=== PATIENT | male | born 1935 | race Caucasian/White ===

== ENCOUNTER → 2016-08-25 | Day surgery (SDC) | payer MEDICARE ==
--- NOTE | 2016-08-18 14:38 | HP ---
CC: Dr. Shukri Dunham DATE OF ADMISSION: 08/25/2016. AGE: 80-year-old male. ADMITTING DIAGNOSES: 1. Gross hematuria. 2. Bladder tumor. PLANNED PROCEDURE: Transurethral resection of bladder tumor, possible right stent insertion. SURGEON: Dr. Conklin. HISTORY OF PRESENT ILLNESS: Jon Levin is an 80-year-old gentleman who was evaluated for gross hem aturia. 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 The tumor is fairly close to the expected course of the intramural portion of the right ureter and he is now being brought in fo r transurethral resection of the bladder tumor, possible right stent insertion. He was kindly evalu ated preoperatively by Dr. Shukri Dunham. PAST MEDICAL HISTORY: Significant for: 1. Hypertension. 2. Diabetes. 3. High cholesterol. PAST SURGICAL HISTORY: Significant for: 1. Bilateral inguinal hernia repair. 2. Left hand partial amputation at age 5. 3. Left total knee replacement approximately 15 years ago. MEDICATIONS ON ADMISSION: 1. Metformin 1000 mg b.i.d. 2. Aspirin 81 mg a day. 3. Lisinopril 20 mg a day. 4. Insulin as directed. 5. Simvastatin 20 mg daily. ALLERGIES: No known drug allergies. SMOKING HISTORY: He is a former smoker who quit about 15 to 20 years ago and had about a 30 pack ye ar smoking history prior to that. PHYSICAL EXAMINATION GENERAL: Pleasant, elderly gentleman. VITAL SIGNS: Blood pressure 162/78, pulse 52 per minute, oxygen saturation 99 percent on room air. CARDIOVASCULAR: Regular rate and rhythm, S1, S2. LUNGS: Clear bilaterally. ABDOMEN: Soft without masses. IMPRESSION: Xswlsq-[id number]-[id number]-old former smoker with a history of gross hematuria and bladder tumor as described above. PLAN: Planned procedure is transurethral resection of bladder tumor, possible right stent insertion . [id number]/[facility] #: [id number]
[~2016-08-25] MED LIST: Buffered Lidocaine 1% SYR 3ML* 3 ML/SYR SYRINGE INTRADERM ONE; Buffered Lidocaine 1% SYR 3ML* 3 ML/SYR SYRINGE ONE; Iohexol 180 (CONTRAST) 10 ML SDV IV ONE; Lidocaine 2% JELLY* 6 ML JELLY TOPICAL ONE; Lidocaine 2% MPF* 2 ML VIAL ONE; Ondansetron INJ* 2 MG/ML VIAL IV PRN; Propofol* 10 MG/ML 20 ML BTL IV PUSH ONE; Sodium Citrate/Citric Acid* 15 ML UDC ONE; Sodium Citrate/Citric Acid* 15 ML UDC PO ONE; cefTRIAXone(*) 2 GM ADDV.VIAL IVPB ONE; fentaNYL* 50 MCG/ML 2 ML VIAL (100 MCG VIAL) ONE; oxyCODONE/Acetamin 5/325 MG* TAB ONE
[2016-08-25] MEDS: fentaNYL* 50 MCG/ML 2 ML VIAL (100 MCG VIAL) IV PRN ×2 (09:09→09:18)
--- NOTE | 2016-08-25 09:21 | RAD ---
INDICATION: TURP; RIGHT ureteral stent placement. COMPARISON: No relevant prior exams available on the [facility] [place] [facility] PACS. TECHNIQUE: 11 seconds fluoroscopy. FINDINGS: RIGHT retrograde pyelogram is negative for pelvicaliectasis. RIGHT ureteral stent placed. IMPRESSION: Procedural fluoroscopy. CPT II Codes: 6045F
[2016-08-25 13:03] VITALS: BP 160/69
--- NOTE | 2016-08-25 19:27 | CONS ---
HOSPITAL MEDICINE CONSULTATION REPORT: DATE OF CONSULT: 08/25/16 ATTENDING PHYSICIAN: Dr. Conklin. CONSULTING PHYSICIAN: Dr. Abraham Robbins* (dictation provided by Geno Rehman NP). PRIMARY CARE PHYSICIAN: Dr. Dunham. REASON FOR CONSULTATION: Short-lived junctional rhythm in the perioperative period after TURP. HISTORY OF PRESENT ILLNESS: Mr. Levin is an 80-year-old male with a past medical history of hypertension, diabetes, hyperlipidemia, and recent diagnosis of bladder tumor for which he presented to hospital today for a transurethral resection of the prostate. He reportedly had no issues during the surgery except for the fact that it was noted on telemetry monitoring that he had a rhythm change. EKG shows that the patient had short-lived junctional rhythm, has been on EKG from 10:21 this a.m., within 30 minutes the patient has repeat EKG showing that he converted back to his baseline sinus bradycardia. The patient states he does not have any symptoms of chest pain, palpitations, lightheadedness. He has been up to ambulate to the bathroom and has had no dizziness. He states prior to coming into the hospital, he was feeling in his normal state of isa[place]. He was evaluated preoperatively by Dr. Dunham and felt to be appropriate for surgery. He has had no history of arrhythmias. His baseline EKG shows sinus bradycardia. Mr. Levin's short-lived episode of arrhythmia with junctional rhythm, Hospital Medicine was called regarding consultation. PAST MEDICAL HISTORY: 1. History of bladder tumor, now status post TURP. 2. Hypertension. 3. Diabetes. 4. Hyperlipidemia. 5. History of distant tobacco abuse. PAST SURGICAL HISTORY: 1. Bilateral inguinal hernia repair. 2. Left hand partial amputation at age 5. 3. Left total knee replacement approximately 15 years ago. OUTPATIENT MEDICATIONS: 1. Metformin 1000 mg p.o. b.i.d. 2. Aspirin 81 mg p.o. daily. 3. Lisinopril 20 mg p.o. daily. 4. Insulin as directed. 5. Simvastatin 20 mg p.o. daily. ALLERGIES: No known drug allergies. FAMILY HISTORY: Reviewed and noncontributory. SOCIAL HISTORY: The patient states he quit smoking about 15 to 20 years ago. There is no report of alcohol or drug use. He lives with his . His healthcare proxy would be his daughter. REVIEW OF SYSTEMS: A 14-point review of systems was completed with Mr. Levin in PACU and other than needing to go to the bathroom to have a bowel movement, he has no acute complaint and all others were negative. PHYSICAL EXAMINATION: GENERAL: Mr. Levin is lying in the bed. He is in no acute distress. He is calm and cooperative to my examination. VITAL SIGNS: Temperature 97.3, pulse rate 51, respiratory rate 18, O2 saturation 98% on room air, blood pressure 160/69. LUNGS: Clear to auscultation bilaterally with no accessory muscle use and good aeration. HEART: S1 and S2. No murmur, rub, or gallop and regular. ABDOMEN: Soft, nontender with bowel sounds positive x4. EXTREMITIES: No cyanosis or edema. SKIN: Intact. The patient has a Saldana catheter in place. NEUROLOGIC: He is alert. He is oriented x3. He moves all extremities equally. There is no facial asymmetry or facial weakness. Extraocular movements are intact. LABORATORY DATA/DIAGNOSTIC STUDIES: No preoperative labs were available. ASSESSMENT: Mr. Levin is an 80-year-old male with past medical history of hypertension, diabetes, hyperlipidemia, who presents to the hospital today for transurethral resection of prostate for bladder tumor with Dr. Conklin. During the perioperative period, he was found to have a short-lived junctional rhythm and has now converted back to his baseline sinus bradycardia. Hospital Medicine has been consulted regarding a question of whether or not the patient is appropriate for discharge from the PACU today. PLAN: I reviewed the EKGs and do concur that it is a junctional rhythm. I did speak with Dr. Randolph quickly over the phone, who had provided the official EKG interpretation that is available in the electronic medical record. She agrees that the patient likely has underlying sinus bradycardia, which was worsened by the anesthesia and likely went into a junctional rhythm because of that. The patient is asymptomatic and again is back to his normal sinus rhythm. The only recommendation from us and from Dr. Randolph would be for a possible outpatient cardiac monitoring to determine if the patient is having ongoing issues with junctional rhythm if he were to have any symptoms of lightheadedness, dizziness, or other concerning symptom. I have spoken to Mr. Levin and his daughter about this and they are planning to follow up with Dr. Dunham next week. Mr. Levin is medically stable for discharge in PACU today. TIME SPENT: Approximately 35 minutes was spent in the consultation of this patient; more than half time spent with him and his daughter at the bedside reviewing the events leading up to this hospitalization, performing the physical examination, and reviewing the plan of care. GENO REHMAN NP CC: Dr. Dunham* [id number]/[facility] #: [id number] ANIA
--- NOTE | 2016-08-25 21:24 | OP ---
DATE OF OPERATION: 08/25/16 - [facility] DATE OF : [birth year] - AGE: 80 years, male. SURGEON: Tavares Conklin MD ANESTHESIOLOGIST: Dr. Gonzalez. ANESTHESIA: General. PRE-OP DIAGNOSES: 1. Hematuria. 2. 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 POST-OP DIAGNOSES: 1. Hematuria. 2. 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 OPERATIVE PROCEDURE: 1. Transurethral resection of bladder tumors (greater than 5 cm). 2. Right retrograde pyelogram and right stent insertion. COMPLICATIONS: None. BLOOD LOSS: Minimal. OPERATIVE FINDINGS: 1. Moderately enlarged prostate. 2. Aggregate of multiple superficial appearing bladder tumors, posterior bladder wall at the edge of a diverticulum (no evidence of invasive appearing tumor visually). STENT USED: A 7-Indonesian stent, right ureter. INDICATIONS: Jon Levin is an 80-year-old gentleman who was evaluated and noted to have a bladder tumor. Because of the proximity of this to the intramural portion of the right ureter, he may require temporary right stent insertion. DESCRIPTION OF PROCEDURE: After induction of general anesthesia, the patient was placed in dorsal lithotomy position. Sequential compression devices were in place and functioning. Initial cystoscopy revealed mild strictures in the bulbar urethra. The prostate is moderately enlarged. The bladder was examined. The right and left ureteral orifices are normal in position and configuration. 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 Using a guidewire, the right orifice was intubated and right retrograde pyelogram was performed. There was no evidence of any filling defects noted and a 7-Indonesian stent was introduced and positioned under fluoroscopy with good proximal and distal positioning obtained. Next, attention was directed to the bladder tumors. [employer] biopsies were obtained and sent for histopathology. Next, a resectoscope was introduced and all of the tumor was resected down to muscle. At the end of the procedure, there was no remaining visible tumor and hemostasis appeared satisfactory. There was no evidence of bladder perforation. A Saldana catheter was placed and connected to a drainage bag. The patient tolerated the procedure satisfactorily and was transferred back to the recovery area in stable condition. CC: Shukri Dunham MD* [id number]/[facility] #: [id number] ANIA
== END | disposition home or self-care (01) ==
LOC: OR 06:23
PROVIDERS: ATTEND Urology
DX: C67.8 Malignant neoplasm of overlapping sites of bladder (principal); I97.89 Other postprocedural complications and disorders of the circulatory system, not elsewhere classified; I49.9 Cardiac arrhythmia, unspecified; Y83.8 Other surgical procedures as the cause of abnormal reaction of the patient, or of later complication, without mention of misadventure at the time of the procedure; E11.8 Type 2 diabetes mellitus with unspecified complications; Z79.4 Long term (current) use of insulin; I10 Essential (primary) hypertension; Z87.891 Personal history of nicotine dependence
CPT/HCPCS: 74420; 88305; 93005; A9270-GY; C1876; J0696; J2704; J3010

== ENCOUNTER 2017-01-30 09:46 | Inpatient (IN) | payer MEDICARE ==
[2017-01-30 12:29] LABS: Hematocrit 42 % (42-52); Hemoglobin 13.7 g/dl (14.0-18.0); Mean Corpuscular HGB Conc 33 g/dl (31-36); Mean Corpuscular Hemoglobin 31 pg (27-31); Mean Corpuscular Volume 94 fL (80-94); Mean Platelet Volume 9 um3 (7.4-10.4); Red Blood Count 4.46 10^6/ul (4.0-5.4); Red Cell Distribution Width 14 % (10.5-15); White Blood Count 6.2 10^3/ul (3.5-10.8)
--- NOTE | 2017-01-30 12:39 | RAD ---
INDICATION: Right arm numbness COMPARISON: None. TECHNIQUE: Contiguous axial sections of the brain were obtained from the skull base to the vertex without contrast. FINDINGS: At the superior portion of the left frontal parietal lobe there is hyperdense material adjacent to the cortex (axial image 25). On the sagittal plane image (image 23 of 34) there is hyperdense material is potentially located at the central sulcus on the left. There is no definite subdural hematoma or other foci of extra-axial hemorrhage. The ventricles, cisterns and sulci exhibit symmetrical and mild involutional changes. The haile-white matter differentiation is adequately maintained and there is no sulcal effacement. No significant focal abnormality or mass effect is present. No significant focal osseous abnormality is present. The visualized portion of the paranasal sinuses are clear. There is essentially complete fusion of the left mastoid air cells. IMPRESSION: 1. CT findings are consistent with subarachnoid hemorrhage at the left central sulcus without CT apparent acute abnormality of the underlying haile matter. 2. Left mastoid air cell effusion of unknown chronicity. 3. Additional age-appropriate chronic findings described in the body the report. The presence of subarachnoid hemorrhage was reported to Dr. Murphy over the telephone at approximately 1225 hours on January 30, 2017.
[2017-01-30 12:48] LABS: Albumin 4.2 g/dL (3.2-5.2); BUN/Creatinine Ratio 19.5 (8-20); Calcium 9.4 mg/dL (8.6-10.3); EGFR African American 115.7 (>60); EGFR Non-African American 89.9 (>60); Globulin 2.6 g/dL (2-4); Potassium 4.1 mmol/L (3.5-5.0); Total Bilirubin 0.5 mg/dL (0.2-1.0); Total Protein 6.8 g/dL (6.4-8.9)
[2017-01-30] MEDS ORDERED: Iodixanol* (CONTRAST) 320 MG/ML 100 ML SDV IV ONE (13:22)
--- NOTE | 2017-01-30 14:23 | RAD ---
INDICATION: Right upper extremity numbness COMPARISON: Same day CT of the brain that shows evidence of subarachnoid hemorrhage at the left central sulcus. TECHNIQUE: A CT angiogram of the head was performed with 80 cc of Visipaque 320. Contiguous axial sections were obtained from the C2 level through the [place]. Images were reconstructed in the sagittal, coronal planes and in a 3-D volume rendered format. CTA of the brain: Immediately external to the cortex at the central sulcus there is hyperdense material (axial image 55 and sagittal image 37). The internal carotid, anterior and middle cerebral arteries appear are patent without high grade stenosis or occlusion. There is coarse atherosclerotic of the bilateral petrous carotid arteries. The vertebral, basilar and posterior cerebral arteries appear patent without high grade stenosis or occlusion. There is coarse atherosclerotic calcification at the bilateral, right greater than left, vertebral arteries low the confluence into the basilar artery. Bilaterally the posterior communicating arteries appear to be absent. No focal luminal filling defect, aneurysm or vascular malformation is seen. IMPRESSION: 1. Similar to the previous CT examination, findings are consistent with subarachnoid hemorrhage at the left central sulcus. 2. 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
[2017-01-30 15:08] LABS: Urine Bacteria Absent (Absent); Urine Bilirubin Negative (Negative); Urine Glucose Negative (Negative); Urine Nitrite Negative (Negative)
[2017-01-30] MEDS ORDERED: hydrALAZINE IV* 20 MG/ML VIAL IV SLOW PU PRN (15:53)
[2017-01-30] MEDS ORDERED: Dextrose 50% Syringe 50 ML* 25 GM/50 ML SYRINGE IV PUSH PRN (15:54)
[2017-01-30] MEDS ORDERED: Labetalol IV* 5 MG/ML 20 ML VIAL IV PUSH PRN (15:57)
[2017-01-30] MEDS ORDERED: Ondansetron INJ* 2 MG/ML VIAL IV PRN (16:29)
[2017-01-30] MEDS ORDERED: Acetaminophen TAB* 325 MG PO PRN (16:29)
[2017-01-30] MEDS: Insulin LISPRO* 1 UNITS UNIT SUBCUT SCH (17:14)
[2017-01-30] MEDS: Atorvastatin* 20 MG TAB PO SCH (17:53)
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
--- NOTE | 2017-01-30 22:41 | HP ---
HISTORY AND PHYSICAL:* ADDENDUM: Mr. Levin is an 81-year-old male with a history of hypertension and diabetes, who developed one-sided numbness today, although was transient and resolved. Subsequent CT of the brain showed subarachnoid hemorrhage. The patient had some atypical symptoms for subarachnoid hemorrhage and he has not been hypertensive in the emergency department. We will ask Dr. Majano to see the patient for evaluation and help with diagnostics. For further details of the patient's presentation and plan, please see history and physical dictated by Svetlana Montanez NP, on 01/30/17, with which I agree. [id number]/[facility] #: [id number] MTDD
[2017-01-31 06:02] LABS: Hematocrit 40 % (42-52); Hemoglobin 13.2 g/dl (14.0-18.0); Mean Corpuscular HGB Conc 33 g/dl (31-36); Mean Corpuscular Hemoglobin 31 pg (27-31); Mean Corpuscular Volume 94 fL (80-94); Mean Platelet Volume 10 um3 (7.4-10.4); Red Blood Count 4.28 10^6/ul (4.0-5.4); Red Cell Distribution Width 14 % (10.5-15); White Blood Count 5.8 10^3/ul (3.5-10.8)
[2017-01-31 06:32] LABS: BUN/Creatinine Ratio 17.3 (8-20); Calcium 8.9 mg/dL (8.6-10.3); EGFR African American 128.2 (>60); EGFR Non-African American 99.7 (>60); HDL Cholesterol 56.7 mg/dL; Potassium 3.9 mmol/L (3.5-5.0)
[2017-01-31] MEDS: Insulin LISPRO* 1 UNITS UNIT SUBCUT SCH ×3 (07:35→17:58)
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
[2017-01-31] MEDS: Lisinopril TAB* 10 MG PO SCH (07:53)
--- NOTE | 2017-01-31 08:14 | RAD ---
Indication: Follow-up subarachnoid hemorrhage. Right-sided numbness. CT of the brain was performed without IV contrast. Ventricular structures are midline. No midline shift is noted. Again noted is left convexity subarachnoid hemorrhage which is unchanged since previous exam of January 30, 2017. Mastoid air cells are opacified on the left consistent with left-sided mastoid sinusitis. There are multiple areas of low density in the periventricular white matter which is unchanged from previous exam and may represent chronic ischemic White matter change. Posterior fossa is otherwise unremarkable. IMPRESSION: Left convexity subarachnoid hemorrhage is unchanged from previous exam. Chronic ischemic White matter change is noted. Left-sided mastoid sinusitis is noted unchanged.
--- NOTE | 2017-01-31 11:09 | ED ---
I, Nicolas,Alea, scribed for Giuseppe Murphy MD on 01/30/17 at 1007 . Neurological HPI - HPI Summary HPI Summary: This 81 y/o male presents to ED for acute onset of RUE numbness that lasted 15 minutes immediately after breakfast this morning. Numbness was located upto RUE shoulder and is currently resolved. Negative weakness, neck problem, or limited ROM. Pt denies any prior similar episode of numbness. Negative PMHx of CVA or TIA. PMHx includes traumatic LUE injury with digit #1 and #2 missing, and DM. - History of Current Complaint Chief Complaint: EDNeurologicalDeficit Stated Complaint: RT ARM NUMBNESS Hx Obtained From: Patient, Medical Records Onset/Duration: Started hours ago Timing: Intermittent Episodes Lasting: - 15 minutes Pain Intensity: 0 Pain Scale Used: 0-10 Numeric Character: Numbness/Tingling - RUE hand - Allergy/Home Medications Allergies/Adverse Reactions: Allergies Allergy/AdvReac Type Severity Reaction Status Date / Time No Known Allergies Allergy Verified 08/25/16 07:02 PMH/Surg Hx/FS Hx/Imm Hx Endocrine/Hematology History: Reports: Hx Diabetes - TYPE 2 Cardiovascular History: Reports: Hx Hypertension - ON MEDICATION FOR Denies: Other Cardiovascular Problems/Disorders Respiratory History: Denies: Other Respiratory Problems/Disorders GI History: Denies: Other GI Disorders Musculoskeletal History: Denies: Other Musculoskeletal History Sensory History: Reports: Hx Cataracts - AROLDO, Hx Contacts or Glasses - READING Denies: Hx Hearing Aid Opthamlomology History: Reports: Hx Cataracts - AROLDO, Hx Contacts or Glasses - READING Neurological History: Denies: Other Neuro Impairments/Disorders - Surgical History Surgery Procedure, Year, and Place: [facility]OLDO CATARACTS, 2015, [facility] X2, 2005, [facility] – [place]. 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 Negative malignant hypethermia - Social History Alcohol Use: Rare Alcohol Amount: HOLIDAYS Substance Use Type: Reports: None Smoking Status (MU): Former Smoker Type: Cigarettes Amount Used/How Often: PACK A DAY Have You Smoked in the Last Year: No Review of Systems Negative: Fever Positive: Numbness - RUE numbness. Negative: Weakness All Other Systems Reviewed And Are Negative: Yes Physical Exam - Summary Physical Exam Summary: VITAL SIGNS: Reviewed. GENERAL: Patient is a well-developed and nourished MALE who is lying comfortable in the stretcher. Patient is not in any acute respiratory distress. HEAD AND FACE: No signs of trauma. No ecchymosis, hematomas or skull depressions. No sinus tenderness. EYES: PERRLA, EOMI x 2, No injected conjunctiva, no nystagmus. No photophobia. EARS: Hearing grossly intact. Ear canals and tympanic membranes are within normal limits. MOUTH: Oropharynx within normal limits. NECK: Supple, trachea is midline, no adenopathy, no JVD, no carotid bruit, no c- spine tenderness, neck with full ROM. No meningeal signs, no Kernig's or brudzinskis signs. CHEST: Symmetric, no tenderness at palpation LUNGS: Clear to auscultation bilaterally. No wheezing or crackles. CVS: Regular rate and rhythm, S1 and S2 present, no murmurs or gallops appreciated. ABDOMEN: Soft, non-tender. No signs of distention. No rebound no guarding, and no masses palpated. Bowel sounds are normal. EXTREMITIES: FROM in all major joints, no edema, no cyanosis or clubbing. LUE hand missing digit #1 and #2. NEURO: Alert and oriented x 3. No acute neurological deficits. Speech is normal and follows commands. SKIN: Dry and warm Triage Information Reviewed: Yes Vital Signs On Initial Exam: Initial Vitals Temp Pulse Resp BP Pulse Ox 98.6 F 84 16 153/62 99 01/30/17 09:53 01/30/17 09:53 01/30/17 09:53 01/30/17 09:53 01/30/17 09:53 Vital Signs Reviewed: Yes Diagnostics - Vital Signs Vital Signs Temp Pulse Resp BP Pulse Ox 01/30/17 09:53 98.6 F 84 16 153/62 99 - Laboratory Lab Results: Lab Results 01/30/17 01/30/17 01/30/17 Range/Units 12:20 12:20 12:20 WBC 6.2 (3.5-10.8) 10^3/ul RBC 4.46 (4.0-5.4) 10^6/ul Hgb 13.7 L (14.0-18.0) g/dl Hct 42 (42-52) % MCV 94 (80-94) fL MCH 31 (27-31) pg MCHC 33 (31-36) g/dl RDW 14 (10.5-15) % Plt Count 134 L (150-450) 10^3/ul MPV 9 (7.4-10.4) um3 Neut % (Auto) 65.9 (38-83) % Lymph % (Auto) 24.9 L (25-47) % Beauregard % (Auto) 6.7 (1-9) % Eos % (Auto) 1.9 (0-6) % Baso % (Auto) 0.6 (0-2) % Absolute Neuts (auto) 4.1 (1.5-7.7) 10^3/ul Absolute Lymphs (auto) 1.5 (1.0-4.8) 10^3/ul Absolute Monos (auto) 0.4 (0-0.8) 10^3/ul Absolute Eos (auto) 0.1 (0-0.6) 10^3/ul Absolute Basos (auto) 0 (0-0.2) 10^3/ul Absolute Nucleated RBC 0 10^3/ul Nucleated RBC % 0.1 INR (Anticoag Therapy) 0.82 L (0.89-1.11) Sodium 138 (133-145) mmol/L Potassium 4.1 (3.5-5.0) mmol/L Chloride 105 (101-111) mmol/L Carbon Dioxide 28 (22-32) mmol/L Anion Gap 5 (2-11) mmol/L BUN 16 (6-24) mg/dL Creatinine 0.82 (0.67-1.17) mg/dL Est GFR ( Amer) 115.7 (>60) Est GFR (Non-Af Amer) 89.9 (>60) BUN/Creatinine Ratio 19.5 (8-20) Glucose 122 H (70-100) mg/dL Hemoglobin A1c (Less than 6.0) % Lactic Acid (0.5-2.0) mmol/L Calcium 9.4 (8.6-10.3) mg/dL Total Bilirubin 0.50 (0.2-1.0) mg/dL AST 16 (13-39) U/L ALT 10 (7-52) U/L Alkaline Phosphatase 56 (34-104) U/L Troponin I 0.00 (<0.04) ng/mL Total Protein 6.8 (6.4-8.9) g/dL Albumin 4.2 (3.2-5.2) g/dL Globulin 2.6 (2-4) g/dL Albumin/Globulin Ratio 1.6 (1-3) Urine Color Urine Appearance Urine pH (5-9) Ur Specific [place] (1.010-1.030) Urine Protein (Negative) Urine Ketones (Negative) Urine Blood (Negative) Urine Nitrate (Negative) Urine Bilirubin (Negative) Urine Urobilinogen (Negative) Ur Leukocyte Esterase (Negative) Urine WBC (Auto) (Absent) Urine RBC (Auto) (Absent) Urine Bacteria (Absent) Urine Glucose (Negative) 01/30/17 01/30/17 01/30/17 Range/Units 12:20 12:20 14:48 WBC (3.5-10.8) 10^3/ul RBC (4.0-5.4) 10^6/ul Hgb (14.0-18.0) g/dl Hct (42-52) % MCV (80-94) fL MCH (27-31) pg MCHC (31-36) g/dl RDW (10.5-15) % Plt Count (150-450) 10^3/ul MPV (7.4-10.4) um3 Neut % (Auto) (38-83) % Lymph % (Auto) (25-47) % Beauregard % (Auto) (1-9) % Eos % (Auto) (0-6) % Baso % (Auto) (0-2) % Absolute Neuts (auto) (1.5-7.7) 10^3/ul Absolute Lymphs (auto) (1.0-4.8) 10^3/ul Absolute Monos (auto) (0-0.8) 10^3/ul Absolute Eos (auto) (0-0.6) 10^3/ul Absolute Basos (auto) (0-0.2) 10^3/ul Absolute Nucleated RBC 10^3/ul Nucleated RBC % INR (Anticoag Therapy) (0.89-1.11) Sodium (133-145) mmol/L Potassium (3.5-5.0) mmol/L Chloride (101-111) mmol/L Carbon Dioxide (22-32) mmol/L Anion Gap (2-11) mmol/L BUN (6-24) mg/dL Creatinine (0.67-1.17) mg/dL Est GFR ( Amer) (>60) Est GFR (Non-Af Amer) (>60) BUN/Creatinine Ratio (8-20) Glucose (70-100) mg/dL Hemoglobin A1c 7.4 H (Less than 6.0) % Lactic Acid 1.5 (0.5-2.0) mmol/L Calcium (8.6-10.3) mg/dL Total Bilirubin (0.2-1.0) mg/dL AST (13-39) U/L ALT (7-52) U/L Alkaline Phosphatase (34-104) U/L Troponin I (<0.04) ng/mL Total Protein (6.4-8.9) g/dL Albumin (3.2-5.2) g/dL Globulin (2-4) g/dL Albumin/Globulin Ratio (1-3) Urine Color Yellow Urine Appearance Clear Urine pH 7.0 (5-9) Ur Specific [place] 1.026 (1.010-1.030) Urine Protein Negative (Negative) Urine Ketones Negative (Negative) Urine Blood Negative (Negative) Urine Nitrate Negative (Negative) Urine Bilirubin Negative (Negative) Urine Urobilinogen Negative (Negative) Ur Leukocyte Esterase Trace H (Negative) Urine WBC (Auto) Trace(0-5/hpf) (Absent) Urine RBC (Auto) Absent (Absent) Urine Bacteria Absent (Absent) Urine Glucose Negative (Negative) Result Diagrams: 01/31/17 05:30 01/31/17 05:30 Lab Statement: Any lab studies that have been ordered have been reviewed, and results considered in the medical decision making process. - CT Brain CT Interpretation: Positive (See Comments) - 1. CT findings are consistent with subarachnoid hemorrhage at the left central sulcus without CT apparent acute abnormality of the underlying haile matter. 2. Left mastoid air cell effusion of unknown chronicity. 3. Additional age-appropriate chronic findings described in the body the report. The presence of subarachnoid hemorrhage was reported to Dr. Murphy over the telephone at approximately 1225 hours on January 30, 2017. CT Interpretation Completed By: Radiologist CTA Head CT Interpretation: Positive (See Comments) - 1. Similar to the previous CT examination, findings are consistent with subarachnoid hemorrhage at the left central sulcus. 2. 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 CT Interpretation Completed By: Radiologist - EKG 1001 Cardiac Rate: NL - 64 bpm EKG Rhythm: Sinus Rhythm EKG Interpretation: RBBB, new change since 08/25/2016 NIH Scale - NIH Scale Level of Consciousness: Alert/Keenly Responsive Ask Patient the Month and His/Her Age: Both Correct Ask Pt to Open/Close Eyes and Automatic Machine Attendant/Release Non-Paretic Hand: Both Correctly Best Gaze (Only Horizontal Eye Movement): Normal Visual Field Testing: No Visual Loss Facial Paresis-Pt to Smile & Close Eyes or Grimace Symmetry: Normal/Symmetrical Motor Function - Right Arm: No Drift-Holds 10 Seconds Motor Function - Left Arm: No Drift-Holds 10 Seconds Motor Function - Right Leg: No Drift-Holds 10 Seconds Motor Function - Left Leg: No Drift-Holds 10 Seconds Limb Ataxia-Must be out of Proportion to Weakness Present: Absent Sensory (Use Pinprick to Test Arms/Legs/Trunk/Face): Normal Best Language (Describe Picture, Name Items): No Aphasia Dysarthria (Read Several Words): Normal Extinction and Inattention: No Abnormality Total Score: 0 Re-Evaluation - Re-Evaluation First Eval Re-Evaluation Time: 12:47 Comment: MD in room to update pt on CT Brain results and plan of care. Course/Dx - Course Assessment/Plan: This 81 y/o male presents to ED for acute onset of RUE numbness that lasted 15 minutes immediately after breakfast this morning. Numbness was located upto RUE shoulder and is currently resolved. Negative weakness, neck problem, or limited ROM. Pt denies any prior similar episode of numbness. Negative Hx of CVA or TIA. PMHx includes traumatic LUE injury with digit #1 and #2 missing, and DM. Bloodwork indicates mild anemia and elevated glucose of 122. CT Brain shows findings that are consistent with subarachnoid hemorrhage at the left central sulcus without CT apparent acute abnormality of the underlying haile matter. I discussed the case with Erica Brizuela from neurology and he recommends a CTA to r/o aneurysm. CTA Head findings are 1. consistent with subarachnoid hemorrhage at the left central sulcus. 2. 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 Dr. Maldonado consulted at 1308 PM and again and he recommends admission to the hospitalist. At 1439 PM. I discussed the case with Dr. Itzel hsieh hospitalist services and he accepted the patient for admission. - Differential Dx Differential Diagnoses Neuro: Positive: Coronary Artery Disease, Seizure Disorder, Transient Ischemic Attack - Diagnoses Provider Diagnoses: Hemorrhagic cerebrovascular accident (CVA) - Physician Notifications Discussed Care Of Patient With: Surya Maldonado - recommends CTA Head to r/o aneurysm Time Discussed With Above Provider: 13:08 Instructed by Provider To: Admit As Inpatient Discharge - Discharge Plan Condition: Stable Disposition: ADMITTED TO [facility] documentation as recorded by the Nicolas yusuf Soohyun accurately reflects the service I personally performed and the decisions made by , Giuseppe Murphy MD.
--- NOTE | 2017-01-31 16:22 | CONS ---
NEUROLOGY CONSULTATION: DATE OF CONSULT: 01/31/17 LOCATION: The patient is in the ICU. REQUESTING PROVIDER: Svetlana Montanez NP HISTORY OF PRESENT ILLNESS: Jon Levin is an 81-year-old man with a history of diabetes and hypertension, as well as hyperlipidemia, who presented to the ER yesterday morning after a transient episode of right upper extremity numbness and tingling. The history is obtained from review of the chart as well as discussion with the patient's daughter, Jenny, as the patient currently is unable to recall much of what caused him to present to the hospital. This is apparently a change from his admission status and even from earlier this morning. Yesterday, he and his daughter were having breakfast at the [employer], and as they were driving back home, he tells me that he had pain in his right shoulder which radiated down into his flank. The record, however, indicates that he reported arm and shoulder numbness at that time. His daughter also indicates that his arm was weak and he would continually drop it down to his side when he tried to raise it up. The record indicates that these symptoms lasted for about 15 minutes and he was asymptomatic by the time he arrived in the ER. He underwent CT scan of the brain which showed findings concerning for a small amount of subarachnoid hemorrhage in the central sulcus on the left. He denies any recent head trauma, but Svetlana Montanez's H and P indicates that he may have hit his head getting out of the car a few weeks ago, but was unable to recall which side of his head he was hit. He currently denies any headache, extremity numbness or weakness. He does acknowledge that he feels nervous currently and that he has trouble organizing his thoughts and getting his words out when he is nervous. He is clearly a little bit agitated by his inability to recall why he is here in the hospital and even what the name of the hospital is. There has been no witnessed seizures and no periods of alteration is in his awareness which has been witnessed. He has had no abnormal movements as far as I know of the right upper extremity. He underwent CT angiogram yesterday after Dr. Maldonado was contacted which demonstrated no aneurysm nor obvious blood vessel malformation such as an arterial venous malformation. Neurology consultation is requested for help with management and workup of the subarachnoid hemorrhage. PAST MEDICAL HISTORY: 1. Hypertension. 2. Type 2 diabetes. 3. Hyperlipidemia. 4. History of bladder tumor, status post TURP in August 2016. PAST SURGICAL HISTORY: 1. Bilateral inguinal hernias. 2. 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 3. Left total knee about 5 years ago. MEDICATIONS: Home medications have not yet been confirmed but include according to the records: 1. Simvastatin 40 mg. 2. Multivitamin. 3. Metformin 1000 mg twice daily. 4. Lisinopril 20 mg daily. 5. Insulin at meals. 6. Aspirin 81 mg. His hospital medications were reviewed and include: 1. Lisinopril. 2. Insulin. 3. Atorvastatin. 4. Tylenol p.r.n. for pain. 5. Insulin sliding scale. ALLERGIES: No known drug allergies. FAMILY HISTORY: His father had 2 abdominal aneurysms, the second of which resulted in his . His mother reportedly from an infection. He denies any family history of stroke or bleeding in the brain. SOCIAL HISTORY: He quit smoking many years ago. He lives alone and is independent in his ADLs, though indicates that his "lady friend" comes and cooks for him for the week. REVIEW OF SYSTEMS: As per the HPI, otherwise negative. PHYSICAL EXAMINATION: Temperature 99 degrees Fahrenheit, blood pressure most recently when I was in the room and talking with the patient was measured at 116 /103 but that is an outlier and the majority of his blood pressures have been in the 120s to 140s systolic over 50s to 60s diastolic. Heart rate is 68. Oxygen saturation is 100% on room air. On general examination, he was seated in the chair at his bedside and lunch had just arrived when I entered the room. He appeared anxious when I entered the room and had some difficulty understanding who I was and why I was there though I introduced myself. He called his nurse into the room to ask what he should do for this interview and asked if he was dressed appropriately. Furthermore, he was unable to explain what symptoms brought him into the hospital or to state the name of the hospital. At the end of our encounter, when his daughters came back into the room, he was able to give some history of the symptoms that resulted in his admission to the hospital. His heart shows occasional missed beats which seemed to correspond with PVCs on telemetry. There is a systolic ejection murmur heard. He has carotid bruits bilaterally. The lungs are clear to auscultation bilaterally. He has the first 2 fingers of his left hand amputated and the hand is contracted and the forearm on the left side is atrophied. On neurologic examination, he was able to produce the date but he did look at the board in his room, then he was unable to state the name of the hospital. He was able to accurately describe the cookie theft picture on the stroke cards but had some hesitation in his speech at times. He was able to name common objects on the stroke cards, but low frequency objects he was not able to name. He was able to read without difficulty and had no dysarthria. He was able to follow commands of the exam without difficulty. On cranial nerve testing, pupils were equal, round, and reactive from 2 to 1 mm bilaterally. Funduscopic exam was difficult due to small pupil size. His versions are full without nystagmus. Visual brito are full to confrontation with no extinction. Facial sensation is intact to light touch in the V1 through V3 distributions bilaterally. His face is symmetric with full strength. Hearing is intact to finger rub on the left, diminished on the right. The tongue protrudes in the midline and the palate elevates symmetrically. Shoulder shrug is full and symmetric. On motor examination, he has full strength in the upper and lower extremities with no pronator drift. He has some paratonia. Sensation is intact to light touch in the upper and lower extremities with no consistent extinction to double simultaneous stimulation. Reflexes are 2+ in the upper extremities and at the knees, absent at the ankles with downgoing toes. [id number]-[id number] is intact without ataxia. He had some sway with Romberg. DIAGNOSTIC STUDIES/LAB DATA: CBC shows a slightly low hematocrit of 40 and a platelet count of 128, down from 134 yesterday. Chemistry panel shows elevated glucoses and an A1c of 7.4%. Cholesterol study showed triglycerides of 97, total cholesterol 141, LDL 65 and HDL of 56.7. Urinalysis was negative for infection and his INR was 0.82. Noncontrast brain CT obtained yesterday and repeated this morning were personally reviewed and show a small area of subarachnoid hemorrhage in the left frontoparietal convexity which appears to be settling in the central sulcus. I also questioned whether there is hypodensity in the white matter underlying this area of hemorrhage but this was not felt to be the case by the radiologist. CT angiogram was obtained and reviewed and again shows no evidence of aneurysm or arteriovenous malformation. This was a CTA of the head only and the neck was not obtained, but there is chronic atherosclerotic disease of the intracranial circulation in particular in the petrous section of the carotid arteries bilaterally, as well as in the right greater than left vertebral arteries. IMPRESSION: Jon Levin is an 81-year-old man admitted with a small apparent subarachnoid hemorrhage on the left, who experienced transient symptoms of right arm numbness and tingling. He has not reportedly had recurrence of those symptoms but his mental status has declined since his admission and perhaps is somewhat fluctuating. As a result, I would like to obtain an EEG at this time to evaluate for any subclinical seizure activity or periodic discharges. I have also asked for MRI scan of the brain to be done to evaluate for any underlying stroke or tumor, which may be associated with this subarachnoid hemorrhage. At this point, antiplatelet agents should be avoided. His blood pressure should be kept less than 150 systolic. Close monitoring of his neurologic status should continue and other recommendations will be pending the results of the above testing. [id number]/[facility] #: [id number] [facility] HOSPITALМарина
--- NOTE | 2017-01-31 16:53 | RAD ---
INDICATION: MRI screening COMPARISON: None TECHNIQUE: Decker and lateral views of the orbits were acquired FINDINGS: Orbits: There is no evidence of intraorbital metallic density foreign body. Other: None IMPRESSION: no metallic intraorbital foreign body
--- NOTE | 2017-01-31 17:40 | RAD ---
INDICATION: 81-year-old male with left hemispheric subarachnoid hemorrhage COMPARISON: CT brain January 31, 2017 TECHNIQUE: sagittal T1 FLAIR, axial diffusion and axial SWI images were acquired. The patient declined further imaging FINDINGS: The limited images submitted show no a tiny punctate focus of potential ischemia in the left cerebral hemisphere near the vertex. This measures 4 mm. No other apparent ischemic foci are appreciated. The SWI images confirm the presence of left hemispheric subarachnoid hemorrhage. No underlying lesion is identified on the submitted images. The ventricles are midline. There is diffuse cortical atrophic change. IMPRESSION: A LIMITED, PARTIAL EXAMINATION IS SUBMITTED. THERE IS A POTENTIAL TINY FOCUS OF ISCHEMIA IN THE LEFT CEREBRAL HEMISPHERE NEAR THE VERTEX. THERE IS LEFT-SIDED SUBARACHNOID HEMORRHAGE DOCUMENTED ON EARLIER CT IMAGING.
[2017-01-31] MEDS: Haloperidol INJ IV/IM* 5 MG/ML AMP IV SLOW PU PRN (18:44)
[2017-01-31] MEDS: QUEtiapine TAB* 25 MG PO PRN ×2 (18:45→22:32)
--- NOTE | 2017-01-31 19:03 | PN ---
Hospitalist Progress Note Patient seen later in the morning and early afternoon. He was oriented to self and place but questionable orientation to siutuation. Pt with progressive confusion over the course of the afternoon, per nursing report and neurology notes. PRN Seroquel and Haldol ordered. Pt re-evaluated. At this point in time, he lacks capacity to make safe decisions and to appropriately manage medical information. Continue to re-evaluate. Family updated.
[2017-01-31] MEDS: Atorvastatin* 20 MG TAB PO SCH (22:03)
[2017-02-01] MEDS: Haloperidol INJ IV/IM* 5 MG/ML AMP IV SLOW PU PRN (04:27)
--- NOTE | 2017-02-01 08:12 | PN ---
Subjective Date of Service: 02/01/17 Interval History: Patient seen and examined at bedside. His daughter, Trini, is in the room with him. He reportedly did not sleep well last evening. Nursing notes state that patient was up around 4am with agitation and required haldol. He exhibits impulsivity. Patient also did not complete MRI with contrast yesterday evening due to agitation and he attempted to leave the hospital. This morning, he is pleasant and cooperative and appears more oriented. He is able to recall events from home, which his daughter corroborates. He remembers me from previous visits and recalls that he has "a brain bleed." He is oriented to his name, , place, year. He initially says the month is March but then self-corrects to January (though he may have read this on the board). He initially states the president is Castellano but then says, "that's not right" but cannot recall independently the current president's name. Telemetry: SR with occasional PVCs 80s Family History: Unchanged from Admission Social History: Unchanged from Admission Past Medical History: Unchanged from Admission Objective Active Medications: Acetaminophen (Tylenol Tab*) 650 mg PO Q4H PRN PRN Reason: FEVER/PAIN Atorvastatin Calcium (Lipitor*) 20 mg PO 1700 [facility] Last Admin: 01/31/17 22:03 Dose: 20 mg Dextrose (D50w Syringe 50 Ml*) 12.5 gm IV PUSH .FOR FS < 60 - SS PRN PRN Reason: FS < 60 Haloperidol Lactate (Haldol Inj Iv/Im*) 2 mg IV SLOW PU Q6H PRN PRN Reason: AGITATION Last Admin: 02/01/17 04:27 Dose: 2 mg Insulin Human Lispro (Humalog*) 0 units SUBCUT AC [facility] PRN Reason: Protocol Last Admin: 01/31/17 17:58 Dose: Not Given Labetalol HCl (Trandate Iv*) 10 mg IV PUSH Q6H PRN PRN Reason: BLOOD PRESSURE Lisinopril (Prinivil Tab*) 20 mg PO DAILY [facility] Last Admin: 01/31/17 07:53 Dose: 20 mg Quetiapine Fumarate (Seroquel Tab*) 25 mg PO DAILY PRN PRN Reason: AGITATION/ANXIETY Last Admin: 01/31/17 22:32 Dose: 25 mg Vital Signs 01/31/17 01/31/17 01/31/17 09:00 09:12 09:48 Temperature Pulse Rate 73 Respiratory 16 22 15 Rate Blood Pressure 117/99 (mmHg) O2 Sat by Pulse 98 Oximetry 01/31/17 01/31/17 01/31/17 10:00 11:00 11:02 Temperature Pulse Rate 73 63 63 Respiratory 17 17 19 Rate Blood Pressure 115/42 75/54 120/55 (mmHg) O2 Sat by Pulse 98 96 97 Oximetry 01/31/17 01/31/17 01/31/17 11:07 11:55 12:00 Temperature 99.0 F Pulse Rate 60 Respiratory 19 17 Rate Blood Pressure (mmHg) O2 Sat by Pulse 97 Oximetry 01/31/17 01/31/17 01/31/17 12:09 13:00 13:22 Temperature Pulse Rate 65 Respiratory 15 15 17 Rate Blood Pressure 116/103 (mmHg) O2 Sat by Pulse 100 Oximetry 01/31/17 01/31/17 01/31/17 13:27 14:00 15:00 Temperature Pulse Rate 68 64 Respiratory 17 19 17 Rate Blood Pressure 139/50 138/50 (mmHg) O2 Sat by Pulse 99 100 Oximetry 01/31/17 01/31/17 01/31/17 15:14 15:57 16:00 Temperature 98.8 F Pulse Rate 68 Respiratory 18 19 20 Rate Blood Pressure (mmHg) O2 Sat by Pulse 99 Oximetry 01/31/17 01/31/17 01/31/17 17:37 17:43 18:00 Temperature Pulse Rate 79 75 Respiratory 19 16 Rate Blood Pressure (mmHg) O2 Sat by Pulse 98 98 Oximetry 01/31/17 01/31/17 01/31/17 18:11 18:57 19:00 Temperature Pulse Rate 89 116 40 Respiratory 17 21 Rate Blood Pressure 129/43 116/53 (mmHg) O2 Sat by Pulse 96 89 97 Oximetry 01/31/17 01/31/17 01/31/17 20:00 21:00 22:00 Temperature Pulse Rate 68 63 65 Respiratory 18 18 16 Rate Blood Pressure 135/57 128/56 123/44 (mmHg) O2 Sat by Pulse 96 95 96 Oximetry 01/31/17 01/31/17 02/01/17 23:00 23:44 00:00 Temperature 98.8 F Pulse Rate 66 76 Respiratory 18 19 Rate Blood Pressure 159/64 (mmHg) O2 Sat by Pulse 98 97 Oximetry 02/01/17 02/01/17 02/01/17 00:23 01:00 02:00 Temperature Pulse Rate 73 Respiratory 17 20 20 Rate Blood Pressure (mmHg) O2 Sat by Pulse 95 Oximetry 02/01/17 02/01/17 02/01/17 03:00 03:12 04:00 Temperature 98.4 F Pulse Rate Respiratory 20 20 Rate Blood Pressure 103/44 (mmHg) O2 Sat by Pulse Oximetry 02/01/17 02/01/17 02/01/17 04:05 05:00 06:00 Temperature Pulse Rate 62 Respiratory 18 20 16 Rate Blood Pressure (mmHg) O2 Sat by Pulse 96 Oximetry 02/01/17 02/01/17 02/01/17 07:00 07:17 07:58 Temperature 98.2 F Pulse Rate Respiratory 18 Rate Blood Pressure 134/67 (mmHg) O2 Sat by Pulse Oximetry Oxygen Devices in Use Now: None Appearance: Elderly gentleman, OOB to chair, NAD Eyes: PERRLA Ears/Nose/Mouth/Throat: Mucous Membranes Moist Neck: NL Appearance and Movements; NL JVP Respiratory: Symmetrical Chest Expansion and Respiratory Effort, Clear to Auscultation Cardiovascular: NL Sounds; No Murmurs; No JVD, RRR Abdominal: NL Sounds; No Tenderness; No Distention Extremities: No Edema, - - 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 Mildly disoriented to time. Mostly oriented to situation. Lines/Tubes/Other Access: Clean, Dry and Intact Peripheral IV Nutrition: Taking PO's Result Diagrams: 01/31/17 05:30 01/31/17 05:30 Additional Lab and Data: Lab Results 01/30/17 01/30/17 01/30/17 Range/Units 12:20 12:20 12:20 WBC 6.2 (3.5-10.8) 10^3/ul RBC 4.46 (4.0-5.4) 10^6/ul Hgb 13.7 L (14.0-18.0) g/dl Hct 42 (42-52) % MCV 94 (80-94) fL MCH 31 (27-31) pg MCHC 33 (31-36) g/dl RDW 14 (10.5-15) % Plt Count 134 L (150-450) 10^3/ul MPV 9 (7.4-10.4) um3 Neut % (Auto) 65.9 (38-83) % Lymph % (Auto) 24.9 L (25-47) % [place] % (Auto) 6.7 (1-9) % Eos % (Auto) 1.9 (0-6) % Baso % (Auto) 0.6 (0-2) % Absolute Neuts (auto) 4.1 (1.5-7.7) 10^3/ul Absolute Lymphs (auto) 1.5 (1.0-4.8) 10^3/ul Absolute Monos (auto) 0.4 (0-0.8) 10^3/ul Absolute Eos (auto) 0.1 (0-0.6) 10^3/ul Absolute Basos (auto) 0 (0-0.2) 10^3/ul Absolute Nucleated RBC 0 10^3/ul Nucleated RBC % 0.1 INR (Anticoag Therapy) 0.82 L (0.89-1.11) Sodium 138 (133-145) mmol/L Potassium 4.1 (3.5-5.0) mmol/L Chloride 105 (101-111) mmol/L Carbon Dioxide 28 (22-32) mmol/L Anion Gap 5 (2-11) mmol/L BUN 16 (6-24) mg/dL Creatinine 0.82 (0.67-1.17) mg/dL Est GFR ( Amer) 115.7 (>60) Est GFR (Non-Af Amer) 89.9 (>60) BUN/Creatinine Ratio 19.5 (8-20) Glucose 122 H (70-100) mg/dL Hemoglobin A1c (Less than 6.0) % Lactic Acid (0.5-2.0) mmol/L Calcium 9.4 (8.6-10.3) mg/dL Total Bilirubin 0.50 (0.2-1.0) mg/dL AST 16 (13-39) U/L ALT 10 (7-52) U/L Alkaline Phosphatase 56 (34-104) U/L Troponin I 0.00 (<0.04) ng/mL Total Protein 6.8 (6.4-8.9) g/dL Albumin 4.2 (3.2-5.2) g/dL Globulin 2.6 (2-4) g/dL Albumin/Globulin Ratio 1.6 (1-3) Urine Color Urine Appearance Urine pH (5-9) Ur Specific [place] (1.010-1.030) Urine Protein (Negative) Urine Ketones (Negative) Urine Blood (Negative) Urine Nitrate (Negative) Urine Bilirubin (Negative) Urine Urobilinogen (Negative) Ur Leukocyte Esterase (Negative) Urine WBC (Auto) (Absent) Urine RBC (Auto) (Absent) Urine Bacteria (Absent) Urine Glucose (Negative) 01/30/17 01/30/17 01/30/17 Range/Units 12:20 12:20 14:48 WBC (3.5-10.8) 10^3/ul RBC (4.0-5.4) 10^6/ul Hgb (14.0-18.0) g/dl Hct (42-52) % MCV (80-94) fL MCH (27-31) pg MCHC (31-36) g/dl RDW (10.5-15) % Plt Count (150-450) 10^3/ul MPV (7.4-10.4) um3 Neut % (Auto) (38-83) % Lymph % (Auto) (25-47) % [place] % (Auto) (1-9) % Eos % (Auto) (0-6) % Baso % (Auto) (0-2) % Absolute Neuts (auto) (1.5-7.7) 10^3/ul Absolute Lymphs (auto) (1.0-4.8) 10^3/ul Absolute Monos (auto) (0-0.8) 10^3/ul Absolute Eos (auto) (0-0.6) 10^3/ul Absolute Basos (auto) (0-0.2) 10^3/ul Absolute Nucleated RBC 10^3/ul Nucleated RBC % INR (Anticoag Therapy) (0.89-1.11) Sodium (133-145) mmol/L Potassium (3.5-5.0) mmol/L Chloride (101-111) mmol/L Carbon Dioxide (22-32) mmol/L Anion Gap (2-11) mmol/L BUN (6-24) mg/dL Creatinine (0.67-1.17) mg/dL Est GFR ( Amer) (>60) Est GFR (Non-Af Amer) (>60) BUN/Creatinine Ratio (8-20) Glucose (70-100) mg/dL Hemoglobin A1c 7.4 H (Less than 6.0) % Lactic Acid 1.5 (0.5-2.0) mmol/L Calcium (8.6-10.3) mg/dL Total Bilirubin (0.2-1.0) mg/dL AST (13-39) U/L ALT (7-52) U/L Alkaline Phosphatase (34-104) U/L Troponin I (<0.04) ng/mL Total Protein (6.4-8.9) g/dL Albumin (3.2-5.2) g/dL Globulin (2-4) g/dL Albumin/Globulin Ratio (1-3) Urine Color Yellow Urine Appearance Clear Urine pH 7.0 (5-9) Ur Specific [place] 1.026 (1.010-1.030) Urine Protein Negative (Negative) Urine Ketones Negative (Negative) Urine Blood Negative (Negative) Urine Nitrate Negative (Negative) Urine Bilirubin Negative (Negative) Urine Urobilinogen Negative (Negative) Ur Leukocyte Esterase Trace H (Negative) Urine WBC (Auto) Trace(0-5/hpf) (Absent) Urine RBC (Auto) Absent (Absent) Urine Bacteria Absent (Absent) Urine Glucose Negative (Negative) Microbiology and Other Data: Microbiology 01/30/17 16:16 Nasal Screen MRSA (PCR)(NETO) - Final Nasal Mrsa Negative Diagnostic Imaging: CT brain, 01/31 - subarachnoid hemorrhage in the left central sulcus without CT- apparent acute abnormality of the underlying haile matter. CTA brain, 01/31 - subarachnoid hemorrhage of left central sulcus, no focal luminal filling defect/aneurysm/vascular malformation seen EKG Data: EKG - SR with RBBB, similar to previous EKG in 08/2016 Assess/Plan/Problems-Billing Assessment: Mr. Levin is an 81 yo male with a PMH significant for HTN, DM, HLD who presented to the ED on 01/30 with concern for right upper extremity numbness; CT brain showed concern for subarachnoid hemorrhage. - Patient Problems (1) Altered mental state Code(s): R41.82 - ALTERED MENTAL STATUS, UNSPECIFIED Comment: Improved this morning DDx includes potential seizure activity, worsening mental status secondary to SAH, ing, acute delirium No acute s/s infection, electrolytes have been WNL Try to enforce better sleep/waking cycles Continue prn Seroquel Neurological checks (2) Subarachnoid hemorrhage Comment: Patient's presentation atypical for subarachnoid hemorrhage, with no c/o BOWLES, neck pain, LOC, n/v. Question if pt hit head on car or some branches recently that may have contributed to bleed. HTN appears to be well controlled, reports rare to occasional ETOH use. Denies ASA, NSAID use. MRI partially completed yesterday, due to pt agitation and confusion. Plan to complete contrast portion today. Tiny focal point of ischemia noted on MRI w/o contrast. CT brain showing subarachnoid hemorrhage in the left central sulcus with no midline shift. Appreciate neurosurgery and neurology input. Continue q2 neurological checks. EEG pending (3) HTN (hypertension) Code(s): I10 - ESSENTIAL (PRIMARY) HYPERTENSION Comment: Normotensive, pt appears to have good BP control at home. Continue lisinopril PRN labetalol with goal of SBP<140 in SAH (4) Diabetes mellitus Code(s): E11.9 - TYPE 2 DIABETES MELLITUS WITHOUT COMPLICATIONS Comment: HgbA1c 7.4 BG with fair control Hold home metformin, continue Lispro SSI (5) HLD (hyperlipidemia) Code(s): E78.5 - HYPERLIPIDEMIA, UNSPECIFIED Comment: Continue atorvastatin. (6) DVT prophylaxis Comment: Anticoagulation contraindicated in acute hemorrhage SCDs (7) Full code status Code(s): Z78.9 - OTHER SPECIFIED HEALTH STATUS Comment: Verbally confirmed with patient and family on 01/30 Status and Disposition: Inpatient admission.
[2017-02-01] MEDS ORDERED: LORazepam INJ* 2 MG/ML 1 ML VIAL IV PUSH PRN ×2 (08:13→08:14)
--- NOTE | 2017-02-01 08:41 | EEG ---
ELECTROENCEPHALOGRAPHY REPORT: DATE OF RECORDIN01/31/17 LOCATION: The patient is in the ICU. ORDERING PHYSICIAN: Dr. Marlys Majano. CLINICAL PROBLEM: Jon Levin is an 81-year-old man who had an episode of transient right upper ext remity numbness and tingling lasting approximately 15 minutes and was found to have a small nontraum atic left subarachnoid hemorrhage. Since admission, he has had some confusion and, in particular, wa s unable to recall the details of his admission or name the hospital earlier today. EEG is requeste d to evaluate for epileptiform abnormalities. MEDICATIONS: 1. Humalog. 2. Lipitor. 3. Prinivil. 4. Tylenol. 5. Zofran. 6. Trandate. REPORT: The waking background showed appropriate organization with clearly-defined anterior to post erior voltage and frequency gradients. There was a well defined, but slightly slow posterior rhythm of 8 Hz which was symmetrical. Anteriorly, there was an expected pattern of lower voltage, irregul ar, mixed faster frequencies. Toward the beginning of the recording, there was rhythmic 3 to 4 Hz s lowing which was present primarily in the midline toward the frontal region and toward the right par acentral region. At other times during the recording, some similar slowing with some intermixed sha rp features, which were not epileptiform, was noted in the same regions with some extension over int o the left paracentral regions. The patient was noted by the technologist to have some tremoring of the bottom lip intermittently throughout the recording which was not associated with any EEG change s. Throughout the recording, there were no epileptiform discharges. CLINICAL IMPRESSION: This is an abnormal waking EEG due to the presence of a slightly slow posterio r rhythm and some focal slowing in the midline which, in one instance, was semi-rhythmic for several seconds. These findings are suggestive of a mild, nonspecific, diffuse encephalopathy with superim posed focal neuronal dysfunction in the midline. There are no epileptiform abnormalities. [id number]/[facility] #: [id number]
[2017-02-01] MEDS: Lisinopril TAB* 10 MG PO SCH (08:49)
[2017-02-01] MEDS: Insulin LISPRO* 1 UNITS UNIT SUBCUT SCH ×4 (08:49→22:23)
[2017-02-01] MEDS ORDERED: Gadoteridol* (CONTRAST) 279.3 MG/ML 10 ML IV ONE (10:57)
[2017-02-01] MEDS ORDERED: Perflutren Lipid Microsphere* 3 ML VIAL ONE (11:48)
--- NOTE | 2017-02-01 11:52 | RAD ---
Indication: Rule out space occupying lesion. Postcontrast sagittal, axial and coronal T1-weighted images were obtained after intravenous injection of 16 mL of ProHance. Precontrast axial T1, T2 and FLAIR images were also obtained. The FLAIR images demonstrates periventricular signal abnormalities consistent with chronic ischemic change. Previously described small lacunar is noted in the left parietal white matter. No midline shift is noted. Postcontrast images demonstrates no evidence of abnormal enhancement. Posterior fossa is otherwise unremarkable. Fluid is noted in the left mastoid air cells. There is suggestion of training vessel in the left parietal convexity likely representing a developmental venous anomaly. There is some susceptibility artifact in this region. 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 No other enhancing lesions are noted.
--- NOTE | 2017-02-01 13:34 | ECHO ---
Patient: CAITY SORIA [facility] Rec#: [id number] : 1935 Date: 02/01/2017 Age: 81y Height: 180.34 cm / 71.0 in Weight: 79.38 kg / 175.0 lbs Sex: M BSA: 1.99 Room#: ICU 5 Admit Date#: 01/30/2017 Type: Inpatient Referring: Svetlana Montanez Reading: Rodo Estrada MD Bone Crusher: Laura Pond RDCS,RDMS CC: Shukri Dunham MD Transthoracic Echocardiogram Indication: CVA BP: 134/67 HR: 69 Rhythm: NSR with PVCs Findings History: HTN, DM, HLD, former smoker Technical Comments: The study is technically difficult. The study is technically limited due to poor acoustic windows. Left Ventricle: The left ventricular chamber size is normal. Mild to moderate concentric left ventricular hypertrophy is observed. Global left ventricular wall motion and contractility are within normal limits. Left ventricular systolic function is at the lower limits of normal. The estimated ejection fraction is 50-55%. Abnormal left ventricular diastolic filling is observed, consistent with impaired relaxation. The absence of left atrial enlargement suggests the finding may not have clinical significance. Left Atrium: The left atrial chamber size is normal. Right Ventricle: The right ventricular chamber size and systolic function are within normal limits. Right Atrium: The right atrial cavity size is normal.No right to left shunting at the atrial level was noted with microbubble administration. Aortic Valve: The aortic valve is trileaflet. The aortic valve leaflets are moderately thickened. There is no evidence of aortic regurgitation. There is mild aortic stenosis. The mean gradient of the aortic valve is 8.9 mmHg. The aortic valve area, by peak velocities, is calculated at 1.5 cm2. The highest aortic valve velocity was obtained with the standard probe from the A5C view. Mitral Valve: There is mitral annular calcification. The mitral valve leaflets are mildly thickened. There is a trace of mitral regurgitation. There is borderline mitral stenosis. Tricuspid Valve: The tricuspid valve leaflets are normal. There is trace tricuspid regurgitation. Unable to estimate the right ventricular systolic pressure. Pulmonic Valve: The pulmonic valve appears normal. There is a trace pulmonic regurgitation. Pericardium: There is no significant pericardial effusion. Aorta: There is mild dilatation of the ascending aorta. There is no dilatation of the aortic arch. There is no dilation of the aortic root. Pulmonary Artery: The main pulmonary artery is not well visualized. Venous: The inferior vena cava appears normal in size. There is a greater than 50% respiratory change in the inferior vena cava dimension. Contrast: Definity was used to optimize study. A total of 4 ml was used. Intravenous agitated saline contrast was used to assess intracardiac shunting. Images 1 and 2 Conclusions The study is technically difficult. The study is technically limited due to poor acoustic windows with lung tissue interference. Mild to moderate concentric left ventricular hypertrophy is observed. Left ventricular systolic function is at the lower limits of normal. The estimated ejection fraction is 50-55%. There is mild aortic stenosis. There is a trace of mitral regurgitation. There is borderline mitral stenosis. There is trace tricuspid regurgitation. Unable to estimate the right ventricular systolic pressure. There is mild dilatation of the ascending aorta. No evidence for right to left shunting by bubble study. Given the suboptimal imaging of transthoracic approach, if a high degree of clinical suspicion is present could consider transesophageal approach. No reports of prior studies offered for comparison. Measurements Name Value Normal Range RVIDd (AP) 2D 2.3 cm (0.9 - 2.6) RVDdMajor (2D) 3.1 cm (2.2 - 4.4) RAd ISD 4CH 4.3 cm (3.4 - 4.9) RA (A4C)W 3.8 cm (2.9 - 4.6) IVSd (2D) 1.4 cm (0.6 - 1) LVPWd (2D) 1.4 cm (0.6 - 1) LVIDd (2D) 4.7 cm (3.6 - 5.4) LVIDs (2D) 2.8 cm - LV FS (2D) 41 % (25 - 45) Aortic Annulus 2.2 cm (1.4 - 2.6) Ao root diameter (2D) 3.2 cm (2.1 - 3.5) Ascending Ao 3.6 cm (2.1 - 3.4) Aortic arch 2.8 cm (1.8 - 3.4) LA dimension (AP) 2D 3.7 cm (2.3 - 3.8) LAd ISD 4CH 4.6 cm (2.9 - 5.3) LA ISD 4CH W 3.9 cm (2.5 - 4.5) Name Value Normal Range LA ESV SP 4CH (A/L) 27.7 ml - LA ESV SP 2CH (A/L) 42.34 ml - LA ESV BP (A/L) 37.33 ml - LA ESV BP (A/L) index 19 ml/m2 - LA ESV SP 4CH (MOD) 26.37 ml - LA ESV SP 2CH (MOD) 40.18 ml - Name Value Normal Range MV E-wave Vmax 0.7 m/sec - MV deceleration time 228 msec - MV A-wave Vmax 1.2 m/sec - MV E:A ratio 0.6 ratio - P. vein S-wave Vmax 0.4 m/sec - P. vein D-wave Vmax 0.3 m/sec - P. vein S:D Vmax ratio 1.1 ratio - P. vein A-wave duration 101 msec - LV septal e' Vmax 0.06 m/sec - LV lateral e' Vmax 0.06 m/sec - LV E:e' septal ratio 11 ratio - LV E:e' lateral ratio 11 ratio - Name Value Normal Range AV Vmax 1.9 m/sec - AV VTI 41 cm - AV peak gradient 14 mmHg - AV mean gradient 8.9 mmHg - LVOT diameter 2 cm - LVOT Vmax 0.9 m/sec - LVOT VTI 18.5 cm - LVOT peak gradient 3.2 mmHg - LVOT mean gradient 1.5 mmHg - DOI (VTI) 0.5 ratio - JONATHAN (continuity Vmax) 1.5 cm2 - JONATHAN (continuity VTI) 1.4 cm2 - MAU Vmax 0.6 m/sec - Name Value Normal Range MV Vmax 1.3 m/sec - MV VTI 37.4 cm - MV peak gradient 7 mmHg - MV mean gradient 1.7 mmHg - MV PHT 108 msec - MVA (PHT) 2 cm2 - MVA (continuity VTI) 1.6 cm2 - Name Value Normal Range RAP 8 mmHg - IVC diameter 2 cm - Name Value Normal Range PV Vmax 0.9 m/sec - PV peak gradient 3.3 mmHg -
[2017-02-01] MEDS: QUEtiapine TAB* 25 MG PO SCH (17:58)
[2017-02-01] MEDS: Atorvastatin* 20 MG TAB PO SCH (17:58)
[2017-02-01] MEDS: CMCS: Melatonin (NF) 3 MG TAB PO SCH (22:23)
--- NOTE | 2017-02-02 05:51 | PN ---
NEUROLOGY PROGRESS NOTE: DATE OF FOLLOWUP: 02/01/17 OVERNIGHT EVENTS: The patient was more confused and agitated overnight. He was reportedly swinging at staff and required Haldol. Part of his MRI scan was done yesterday afternoon, but he became agitated and tried to extract himself out of the machine, so the remainder of that was able to be completed this morning. I reviewed the MRI and note that there is a tiny focus of apparent restricted diffusion in the left frontal white matter, which is remote from the apparent subarachnoid hemorrhage. The postcontrast studies to me are somewhat concerning for an underlying vascular malformation that is more complex than a developmental venous anomaly, which is what was interpreted by the radiologist. Therefore, I [facility] [place] and I am awaiting a callback from Dr. Wan to review this. The patient reports he is feeling much better today and his family agrees. His nurse reports that he has been pleasant and cooperative today. He says that his thoughts are more put together today, though when he was asked why he is here in the hospital, he says it is because he has been forgetful. MEDICATIONS: Reviewed and include: 1. Lipitor 20 mg. 2. Lisinopril 20 mg. 3. Seroquel 25 mg p.r.n. 4. Lorazepam 0.5 mg p.r.n. PHYSICAL EXAMINATION: Vital Signs: Temperature 98.3, blood pressure 124/61, heart rate 16, oxygen saturation 99% on room air. On general examination, he is an elderly man, in no acute distress. He is pleasant and cooperative. His heart is in a regular rate and rhythm with no murmurs, rubs, or gallops. Lungs are clear to auscultation bilaterally. On neurologic exam, he is fully oriented. He is able to state his age accurately. His memory is still impaired for the recent events. On cranial nerve testing, versions were full with some end-gaze nystagmus bilaterally. The brito were full to confrontation without any extinction to double simultaneous stimulation. Facial sensation and musculature is full and symmetric. On motor testing, he has full strength and no pronator drift in the upper and lower extremities. Sensation is intact to light touch in the upper extremities. There is no ataxia on [id number] testing. DIAGNOSTIC STUDIES/LAB DATA: His MRI scan was personally reviewed as described above. 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 His EEG performed yesterday showed some periods of focal slowing in the midline , which was sometimes rhythmic, but only lasted a few seconds and otherwise, the posterior rhythm was slightly slow, indicative of a mild nonspecific diffuse encephalopathy. IMPRESSION: Jon Levin is an 81-year-old man, who presented with transient right upper extremity numbness, tingling, and weakness and was found to have a small subarachnoid hemorrhage in the left central sulcus. His MRI imaging to me is potentially concerning for an underlying vascular malformation and so I am consulting with [place] regarding that to see whether transfer to their center for a conventional angiogram could be advisable. I think it is possible that this abnormality could be a developmental venous anomaly, but these rarely bleed and they are rarely associated with focal seizures, so it is difficult to ascribe this area of bleeding and the resultant focal neurologic dysfunction to a DVA. In addition, there is some suggestion on the MRI that there may be some collateral draining vessels, which communicate with the dura and possibly with the superior sagittal sinus as well and for this reason, I will be reviewing this with [place]. Further plans are pending with communication. [id number]/[facility] #: [id number] ANIA
[2017-02-02 05:56] LABS: Hematocrit 40 % (42-52); Hemoglobin 13.3 g/dl (14.0-18.0); Mean Corpuscular HGB Conc 33 g/dl (31-36); Mean Corpuscular Hemoglobin 31 pg (27-31); Mean Corpuscular Volume 93 fL (80-94); Mean Platelet Volume 9 um3 (7.4-10.4); Red Blood Count 4.29 10^6/ul (4.0-5.4); Red Cell Distribution Width 14 % (10.5-15); White Blood Count 5.3 10^3/ul (3.5-10.8)
[2017-02-02 06:08] LABS: BUN/Creatinine Ratio 22.2 (8-20); Calcium 8.9 mg/dL (8.6-10.3); EGFR African American 134.4 (>60); EGFR Non-African American 104.5 (>60); Potassium 4.1 mmol/L (3.5-5.0)
[2017-02-02] MEDS: Lisinopril TAB* 10 MG PO SCH (08:21)
[2017-02-02] MEDS: Insulin LISPRO* 1 UNITS UNIT SUBCUT SCH ×4 (08:21→21:49)
--- NOTE | 2017-02-02 09:33 | PN ---
Subjective Date of Service: 02/02/17 Interval History: Patient seen and examined at bedside. Daughter, Trini, is also present. She describes an episode last evening of slurred speech and pt reporting numbness down arm and into hand. Patient reports return of numbness this AM. He also reports pain to the medial aspect of the thumb and wrist. Denies BOWLES, chest pain , SOB, dizziness. Family History: Unchanged from Admission Social History: Unchanged from Admission Past Medical History: Unchanged from Admission Objective Active Medications: Acetaminophen (Tylenol Tab*) 650 mg PO Q4H PRN PRN Reason: FEVER/PAIN Last Admin: 02/02/17 08:21 Dose: 650 mg Atorvastatin Calcium (Lipitor*) 20 mg PO 1700 [facility] Last Admin: 02/01/17 17:58 Dose: 20 mg Dextrose (D50w Syringe 50 Ml*) 12.5 gm IV PUSH .FOR FS < 60 - SS PRN PRN Reason: FS < 60 Haloperidol Lactate (Haldol Inj Iv/Im*) 2 mg IV SLOW PU Q6H PRN PRN Reason: AGITATION Last Admin: 02/01/17 04:27 Dose: 2 mg Insulin Human Lispro (Humalog*) 0 units SUBCUT ACHS [facility] PRN Reason: Protocol Last Admin: 02/02/17 08:21 Dose: 2 units Labetalol HCl (Trandate Iv*) 10 mg IV PUSH Q6H PRN PRN Reason: BLOOD PRESSURE Lisinopril (Prinivil Tab*) 20 mg PO DAILY [facility] Last Admin: 02/02/17 08:21 Dose: 20 mg Lorazepam (Ativan Inj*) 0.5 mg IV PUSH ONCE PRN PRN Reason: AGITATION/ANXIETY Melatonin (Melatonin (Nf)) 3 mg PO BEDTIME [facility] Last Admin: 02/01/17 22:23 Dose: 3 mg Quetiapine Fumarate (Seroquel Tab*) 25 mg PO 1400 [facility] Last Admin: 02/01/17 17:58 Dose: 25 mg Vital Signs 02/01/17 02/01/17 02/01/17 10:00 11:00 11:16 Temperature Pulse Rate Respiratory 16 16 Rate Blood Pressure 87/41 145/66 (mmHg) O2 Sat by Pulse Oximetry 02/01/17 02/01/17 02/01/17 12:00 12:46 13:00 Temperature 98.3 F Pulse Rate 59 Respiratory 16 16 Rate Blood Pressure 124/61 87/52 (mmHg) O2 Sat by Pulse 99 Oximetry 02/01/17 02/01/17 02/01/17 13:36 14:00 15:00 Temperature Pulse Rate Respiratory 18 14 Rate Blood Pressure 121/52 98/46 (mmHg) O2 Sat by Pulse Oximetry 02/01/17 02/01/17 02/01/17 15:53 16:00 16:05 Temperature 98.1 F Pulse Rate Respiratory Rate Blood Pressure 118/26 119/59 (mmHg) O2 Sat by Pulse Oximetry 02/01/17 02/01/17 02/01/17 17:00 17:15 20:00 Temperature 97.6 F Pulse Rate 61 Respiratory 18 18 Rate Blood Pressure 156/123 134/66 (mmHg) O2 Sat by Pulse 100 Oximetry 02/02/17 02/02/17 02/02/17 00:13 03:32 07:25 Temperature 99.0 F 98.4 F Pulse Rate 73 61 Respiratory 16 16 16 Rate Blood Pressure 139/60 127/57 (mmHg) O2 Sat by Pulse 98 97 Oximetry 02/02/17 07:38 Temperature 97.6 F Pulse Rate 72 Respiratory 16 Rate Blood Pressure 131/56 (mmHg) O2 Sat by Pulse 100 Oximetry Oxygen Devices in Use Now: None Appearance: Elderly male patient, OOB to chair, NAD Eyes: PERRLA Ears/Nose/Mouth/Throat: Mucous Membranes Moist Neck: NL Appearance and Movements; NL JVP Respiratory: Symmetrical Chest Expansion and Respiratory Effort, Clear to Auscultation Cardiovascular: NL Sounds; No Murmurs; No JVD, RRR Abdominal: NL Sounds; No Tenderness; No Distention Extremities: No Edema, - - + Marina to right wrist Neurological: - - Alert, oriented to self, place, knows year Lines/Tubes/Other Access: Clean, Dry and Intact Peripheral IV Result Diagrams: 02/02/17 05:18 02/02/17 05:18 Additional Lab and Data: Lab Results 01/30/17 01/30/17 01/30/17 Range/Units 12:20 12:20 12:20 WBC 6.2 (3.5-10.8) 10^3/ul RBC 4.46 (4.0-5.4) 10^6/ul Hgb 13.7 L (14.0-18.0) g/dl Hct 42 (42-52) % MCV 94 (80-94) fL MCH 31 (27-31) pg MCHC 33 (31-36) g/dl RDW 14 (10.5-15) % Plt Count 134 L (150-450) 10^3/ul MPV 9 (7.4-10.4) um3 Neut % (Auto) 65.9 (38-83) % Lymph % (Auto) 24.9 L (25-47) % [place] % (Auto) 6.7 (1-9) % Eos % (Auto) 1.9 (0-6) % Baso % (Auto) 0.6 (0-2) % Absolute Neuts (auto) 4.1 (1.5-7.7) 10^3/ul Absolute Lymphs (auto) 1.5 (1.0-4.8) 10^3/ul Absolute Monos (auto) 0.4 (0-0.8) 10^3/ul Absolute Eos (auto) 0.1 (0-0.6) 10^3/ul Absolute Basos (auto) 0 (0-0.2) 10^3/ul Absolute Nucleated RBC 0 10^3/ul Nucleated RBC % 0.1 INR (Anticoag Therapy) 0.82 L (0.89-1.11) Sodium 138 (133-145) mmol/L Potassium 4.1 (3.5-5.0) mmol/L Chloride 105 (101-111) mmol/L Carbon Dioxide 28 (22-32) mmol/L Anion Gap 5 (2-11) mmol/L BUN 16 (6-24) mg/dL Creatinine 0.82 (0.67-1.17) mg/dL Est GFR ( Amer) 115.7 (>60) Est GFR (Non-Af Amer) 89.9 (>60) BUN/Creatinine Ratio 19.5 (8-20) Glucose 122 H (70-100) mg/dL Hemoglobin A1c (Less than 6.0) % Lactic Acid (0.5-2.0) mmol/L Calcium 9.4 (8.6-10.3) mg/dL Total Bilirubin 0.50 (0.2-1.0) mg/dL AST 16 (13-39) U/L ALT 10 (7-52) U/L Alkaline Phosphatase 56 (34-104) U/L Troponin I 0.00 (<0.04) ng/mL Total Protein 6.8 (6.4-8.9) g/dL Albumin 4.2 (3.2-5.2) g/dL Globulin 2.6 (2-4) g/dL Albumin/Globulin Ratio 1.6 (1-3) Urine Color Urine Appearance Urine pH (5-9) Ur Specific [place] (1.010-1.030) Urine Protein (Negative) Urine Ketones (Negative) Urine Blood (Negative) Urine Nitrate (Negative) Urine Bilirubin (Negative) Urine Urobilinogen (Negative) Ur Leukocyte Esterase (Negative) Urine WBC (Auto) (Absent) Urine RBC (Auto) (Absent) Urine Bacteria (Absent) Urine Glucose (Negative) 01/30/17 01/30/17 01/30/17 Range/Units 12:20 12:20 14:48 WBC (3.5-10.8) 10^3/ul RBC (4.0-5.4) 10^6/ul Hgb (14.0-18.0) g/dl Hct (42-52) % MCV (80-94) fL MCH (27-31) pg MCHC (31-36) g/dl RDW (10.5-15) % Plt Count (150-450) 10^3/ul MPV (7.4-10.4) um3 Neut % (Auto) (38-83) % Lymph % (Auto) (25-47) % [place] % (Auto) (1-9) % Eos % (Auto) (0-6) % Baso % (Auto) (0-2) % Absolute Neuts (auto) (1.5-7.7) 10^3/ul Absolute Lymphs (auto) (1.0-4.8) 10^3/ul Absolute Monos (auto) (0-0.8) 10^3/ul Absolute Eos (auto) (0-0.6) 10^3/ul Absolute Basos (auto) (0-0.2) 10^3/ul Absolute Nucleated RBC 10^3/ul Nucleated RBC % INR (Anticoag Therapy) (0.89-1.11) Sodium (133-145) mmol/L Potassium (3.5-5.0) mmol/L Chloride (101-111) mmol/L Carbon Dioxide (22-32) mmol/L Anion Gap (2-11) mmol/L BUN (6-24) mg/dL Creatinine (0.67-1.17) mg/dL Est GFR ( Amer) (>60) Est GFR (Non-Af Amer) (>60) BUN/Creatinine Ratio (8-20) Glucose (70-100) mg/dL Hemoglobin A1c 7.4 H (Less than 6.0) % Lactic Acid 1.5 (0.5-2.0) mmol/L Calcium (8.6-10.3) mg/dL Total Bilirubin (0.2-1.0) mg/dL AST (13-39) U/L ALT (7-52) U/L Alkaline Phosphatase (34-104) U/L Troponin I (<0.04) ng/mL Total Protein (6.4-8.9) g/dL Albumin (3.2-5.2) g/dL Globulin (2-4) g/dL Albumin/Globulin Ratio (1-3) Urine Color Yellow Urine Appearance Clear Urine pH 7.0 (5-9) Ur Specific [place] 1.026 (1.010-1.030) Urine Protein Negative (Negative) Urine Ketones Negative (Negative) Urine Blood Negative (Negative) Urine Nitrate Negative (Negative) Urine Bilirubin Negative (Negative) Urine Urobilinogen Negative (Negative) Ur Leukocyte Esterase Trace H (Negative) Urine WBC (Auto) Trace(0-5/hpf) (Absent) Urine RBC (Auto) Absent (Absent) Urine Bacteria Absent (Absent) Urine Glucose Negative (Negative) Microbiology and Other Data: Microbiology 01/30/17 16:16 Nasal Screen MRSA (PCR)(NETO) - Final Nasal Mrsa Negative Diagnostic Imaging: CT brain, 01/31 - subarachnoid hemorrhage in the left central sulcus without CT- apparent acute abnormality of the underlying haile matter. CTA brain, 01/31 - subarachnoid hemorrhage of left central sulcus, no focal luminal filling defect/aneurysm/vascular malformation seen EKG Data: EKG - SR with RBBB, similar to previous EKG in 08/2016 Assess/Plan/Problems-Billing Assessment: Mr. Levin is an 81 yo male with a PMH significant for HTN, DM, HLD who presented to the ED on 01/30 with concern for right upper extremity numbness; CT brain showed concern for subarachnoid hemorrhage. - Patient Problems (1) Altered mental state Code(s): R41.82 - ALTERED MENTAL STATUS, UNSPECIFIED Comment: Waxes and wanes DDx includes potential seizure activity, worsening mental status secondary to SAH, sundowning, acute delirium No acute s/s infection, electrolytes have been WNL Try to enforce better sleep/waking cycles Continue Seroquel Neurological checks q4 (2) Subarachnoid hemorrhage Comment: Stable on imaging New numbness yesterday - repeat CT brain with no acute changes ? of vascular abnormality on MRI, requires repeat MRI with contrast within next day or 2. Appreciate neurology input Continue PT/OT HTN control with goal of SBP<150 (3) De Quervain's tenosynovitis, right Code(s): M65.4 - RADIAL STYLOID TENOSYNOVITIS [DE QUERVAIN] Comment: Patient with positive Marina test to RUE Daughter reports patient does a lot of repetitive movements with housework and lawn care. Wrist splint ordered. (4) HTN (hypertension) Code(s): I10 - ESSENTIAL (PRIMARY) HYPERTENSION Comment: Normotensive, pt appears to have good BP control at home. Continue lisinopril PRN labetalol with goal of SBP<150 in SAH (5) Diabetes mellitus Code(s): E11.9 - TYPE 2 DIABETES MELLITUS WITHOUT COMPLICATIONS Comment: HgbA1c 7.4 BG with fair control Hold home metformin, continue Lispro SSI (6) HLD (hyperlipidemia) Code(s): E78.5 - HYPERLIPIDEMIA, UNSPECIFIED Comment: Continue atorvastatin. (7) DVT prophylaxis Comment: Anticoagulation contraindicated in acute hemorrhage SCDs (8) Full code status Code(s): Z78.9 - OTHER SPECIFIED HEALTH STATUS Comment: Verbally confirmed with patient and family on 01/30 Status and Disposition: Inpatient admission.
--- NOTE | 2017-02-02 12:39 | RAD ---
INDICATION: Slurred speech, right upper from the numbness. COMPARISON: Comparison is made with a prior CT and MRI of the brain studies from January 31, 2017. TECHNIQUE: Contiguous axial sections of the brain were obtained from the skull base to the vertex without contrast. FINDINGS: The ventricles, cisterns and sulci are enlarged consistent with diffuse atrophy. There are small areas of decreased density in the subcortical and periventricular white matter suggestive of mild chronic small vessel ischemic changes. There is a small area of subarachnoid hemorrhage noted in a sulcus at the left parietal convexity which is unchanged. No mass effect is present. The small ischemic focus noted on the prior MRI study is not appreciated on the CT exam. No significant focal osseous abnormality is seen. The visualized portion of the paranasal sinuses and mastoid air cells appear clear. IMPRESSION: 1. SMALL AREA OF SUBARACHNOID HEMORRHAGE PRESENT AT THE LEFT PARIETAL CONVEXITY, UNCHANGED. 2. ATROPHY AND FINDINGS CONSISTENT WITH MILD CHRONIC SMALL VESSEL ISCHEMIC CHANGES.
[2017-02-02] MEDS: QUEtiapine TAB* 25 MG PO SCH (15:03)
[2017-02-02] MEDS: Atorvastatin* 20 MG TAB PO SCH (17:39)
[2017-02-02] MEDS ORDERED: Gadoteridol* (CONTRAST) 279.3 MG/ML 10 ML IV ONE (19:18)
[2017-02-02] MEDS: CMCS: Melatonin (NF) 3 MG TAB PO SCH (21:48)
[2017-02-03 08:43] LABS: BUN/Creatinine Ratio 21.9 (8-20); Calcium 9.5 mg/dL (8.6-10.3); EGFR African American 132.3 (>60); EGFR Non-African American 102.9 (>60); Potassium 4.4 mmol/L (3.5-5.0)
--- NOTE | 2017-02-03 08:44 | RAD ---
Indication: Mental status changes. Slurred speech. RIGHT upper extremity numbness. Comparison: February 02, 2017 through January 30, 2017 CT brain exams. January 30, 2017 CT angiogram head. February 01 and 2016 brain MRI exams. Technique: [email or web address] 1.5 Hanna [id number] with GEM suite. Pre and postcontrast MRI brain. Multiplanar 1 mm postcontrast images obtained. 15 mL ProHance administered IV. Report: Image quality limited due to motion artifact. Unchanged solitary small focus of restricted diffusion at the LEFT frontal lobe subcortical white matter at the level of the centrum semiovale consistent with a subacute infarct. Negative for associated mass effect. Increased signal on FLAIR within the LEFT central sulcus.. On susceptibility series there is artifact reflecting hemosiderin deposition at this level as well as extending throughout the LEFT parietal and frontal lobe sulci. On the postcontrast series there is very mild enhancement at the level of the LEFT central sulcus. No evidence for subdural or epidural hematoma. 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 On precontrast FLAIR and T2-weighted series there is increased signal within the periventricular and subcortical white matter of the cerebral hemispheres most marked at the LEFT frontal lobe at the level of the centrum semiovale unchanged compared with the February 01, 2017 exam and without associated mass effect. Generalized moderate prominence of the cerebral sulci and mild prominence of the ventricles and basal cisterns reflecting atrophy. Preserved major intracranial flow-voids. Unremarkable orbital contents. Grossly clear paranasal sinuses and RIGHT mastoid air spaces. Diffuse LEFT mastoid effusions including at the petrous apex without change. No suspicious calvarial or skull base lesion evident. IMPRESSION: 1. Unchanged subacute small ischemic focus at the LEFT frontal lobe subcortical white matter. 2. Stigmata of LEFT parietal and frontal lobe subarachnoid hemorrhage based on the constellation of findings with extensive susceptibility artifact and mild hyperdensity within the LEFT central sulcus on previous CT exams. Correlation with more remote prior CT exams if available from an outside institution would lend specificity to this diagnosis. 3. Negative for significant mass effect. 4. 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 Although rare occurring in less than 5% DVA lesions may be associated with intracranial hemorrhage. 5. Unchanged finding of extensive LEFT mastoid effusions.
--- NOTE | 2017-02-03 08:52 | PN ---
Subjective Date of Service: 02/03/17 Interval History: Patient seen and examined at bedside. He is OOB to chair. Oriented to self, place, year, month and better oriented to situation. He remembers that Tuesday was Father's Day and recalled the events that brought him in to the hospital. He reports his right wrist feels better with a splint and had better sleep overnight. Family History: Unchanged from Admission Social History: Unchanged from Admission Past Medical History: Unchanged from Admission Objective Active Medications: Acetaminophen (Tylenol Tab*) 650 mg PO Q4H PRN PRN Reason: FEVER/PAIN Last Admin: 02/02/17 08:21 Dose: 650 mg Atorvastatin Calcium (Lipitor*) 20 mg PO 1700 [facility] 234 BEDS AT [facility] Last Admin: 02/02/17 17:39 Dose: 20 mg Dextrose (D50w Syringe 50 Ml*) 12.5 gm IV PUSH .FOR FS < 60 - SS PRN PRN Reason: FS < 60 Haloperidol Lactate (Haldol Inj Iv/Im*) 2 mg IV SLOW PU Q6H PRN PRN Reason: AGITATION Last Admin: 02/01/17 04:27 Dose: 2 mg Insulin Human Lispro (Humalog*) 0 units SUBCUT ACHS [facility]S [facility]CLUDE 234 BEDS AT [facility] PRN Reason: Protocol Last Admin: 02/02/17 21:49 Dose: 2 units Labetalol HCl (Trandate Iv*) 10 mg IV PUSH Q6H PRN PRN Reason: BLOOD PRESSURE Lisinopril (Prinivil Tab*) 20 mg PO DAILY [facility]S [facility]CLUDE 234 BEDS AT [facility] Last Admin: 02/02/17 08:21 Dose: 20 mg Lorazepam (Ativan Inj*) 0.5 mg IV PUSH ONCE PRN PRN Reason: AGITATION/ANXIETY Last Admin: 02/02/17 19:45 Dose: 0.5 mg Melatonin (Melatonin (Nf)) 3 mg PO BEDTIME [facility]S [facility] 234 BEDS AT [facility] Last Admin: 02/02/17 21:48 Dose: 3 mg Quetiapine Fumarate (Seroquel Tab*) 25 mg PO 1400 [facility]CLUDE 234 BEDS AT [facility] Last Admin: 02/02/17 15:03 Dose: 25 mg Vital Signs 02/02/17 02/02/17 02/02/17 11:32 15:25 19:43 Temperature 98.6 F 97.8 F 98.4 F Pulse Rate 61 57 70 Respiratory 16 16 16 Rate Blood Pressure 125/59 120/50 143/57 (mmHg) O2 Sat by Pulse 99 98 98 Oximetry 02/02/17 02/02/17 02/02/17 19:45 19:58 20:45 Temperature Pulse Rate Respiratory 16 16 18 Rate Blood Pressure (mmHg) O2 Sat by Pulse Oximetry 02/02/17 02/03/17 02/03/17 23:20 04:08 08:00 Temperature 97.3 F 98.8 F Pulse Rate 63 64 Respiratory 16 16 16 Rate Blood Pressure 132/63 129/57 (mmHg) O2 Sat by Pulse 99 98 Oximetry Oxygen Devices in Use Now: None Appearance: Elderly male, OOB to chair, NAD Eyes: PERRLA Ears/Nose/Mouth/Throat: Mucous Membranes Moist Neck: NL Appearance and Movements; NL JVP Respiratory: Symmetrical Chest Expansion and Respiratory Effort, Clear to Auscultation Cardiovascular: NL Sounds; No Murmurs; No JVD, RRR Abdominal: NL Sounds; No Tenderness; No Distention Extremities: No Edema Skin: - - scattered ecchymosis to BUE Neurological: - - Alert, oriented to self, place, better oriented to situation Lines/Tubes/Other Access: Clean, Dry and Intact Peripheral IV Result Diagrams: 02/02/17 05:18 02/03/17 08:12 Additional Lab and Data: Lab Results 01/30/17 01/30/17 01/30/17 Range/Units 12:20 12:20 12:20 WBC 6.2 (3.5-10.8) 10^3/ul RBC 4.46 (4.0-5.4) 10^6/ul Hgb 13.7 L (14.0-18.0) g/dl Hct 42 (42-52) % MCV 94 (80-94) fL MCH 31 (27-31) pg MCHC 33 (31-36) g/dl RDW 14 (10.5-15) % Plt Count 134 L (150-450) 10^3/ul MPV 9 (7.4-10.4) um3 Neut % (Auto) 65.9 (38-83) % Lymph % (Auto) 24.9 L (25-47) % [place] % (Auto) 6.7 (1-9) % Eos % (Auto) 1.9 (0-6) % Baso % (Auto) 0.6 (0-2) % Absolute Neuts (auto) 4.1 (1.5-7.7) 10^3/ul Absolute Lymphs (auto) 1.5 (1.0-4.8) 10^3/ul Absolute Monos (auto) 0.4 (0-0.8) 10^3/ul Absolute Eos (auto) 0.1 (0-0.6) 10^3/ul Absolute Basos (auto) 0 (0-0.2) 10^3/ul Absolute Nucleated RBC 0 10^3/ul Nucleated RBC % 0.1 INR (Anticoag Therapy) 0.82 L (0.89-1.11) Sodium 138 (133-145) mmol/L Potassium 4.1 (3.5-5.0) mmol/L Chloride 105 (101-111) mmol/L Carbon Dioxide 28 (22-32) mmol/L Anion Gap 5 (2-11) mmol/L BUN 16 (6-24) mg/dL Creatinine 0.82 (0.67-1.17) mg/dL Est GFR ( Amer) 115.7 (>60) Est GFR (Non-Af Amer) 89.9 (>60) BUN/Creatinine Ratio 19.5 (8-20) Glucose 122 H (70-100) mg/dL Hemoglobin A1c (Less than 6.0) % Lactic Acid (0.5-2.0) mmol/L Calcium 9.4 (8.6-10.3) mg/dL Total Bilirubin 0.50 (0.2-1.0) mg/dL AST 16 (13-39) U/L ALT 10 (7-52) U/L Alkaline Phosphatase 56 (34-104) U/L Troponin I 0.00 (<0.04) ng/mL Total Protein 6.8 (6.4-8.9) g/dL Albumin 4.2 (3.2-5.2) g/dL Globulin 2.6 (2-4) g/dL Albumin/Globulin Ratio 1.6 (1-3) Urine Color Urine Appearance Urine pH (5-9) Ur Specific [place] (1.010-1.030) Urine Protein (Negative) Urine Ketones (Negative) Urine Blood (Negative) Urine Nitrate (Negative) Urine Bilirubin (Negative) Urine Urobilinogen (Negative) Ur Leukocyte Esterase (Negative) Urine WBC (Auto) (Absent) Urine RBC (Auto) (Absent) Urine Bacteria (Absent) Urine Glucose (Negative) 01/30/17 01/30/17 01/30/17 Range/Units 12:20 12:20 14:48 WBC (3.5-10.8) 10^3/ul RBC (4.0-5.4) 10^6/ul Hgb (14.0-18.0) g/dl Hct (42-52) % MCV (80-94) fL MCH (27-31) pg MCHC (31-36) g/dl RDW (10.5-15) % Plt Count (150-450) 10^3/ul MPV (7.4-10.4) um3 Neut % (Auto) (38-83) % Lymph % (Auto) (25-47) % [place] % (Auto) (1-9) % Eos % (Auto) (0-6) % Baso % (Auto) (0-2) % Absolute Neuts (auto) (1.5-7.7) 10^3/ul Absolute Lymphs (auto) (1.0-4.8) 10^3/ul Absolute Monos (auto) (0-0.8) 10^3/ul Absolute Eos (auto) (0-0.6) 10^3/ul Absolute Basos (auto) (0-0.2) 10^3/ul Absolute Nucleated RBC 10^3/ul Nucleated RBC % INR (Anticoag Therapy) (0.89-1.11) Sodium (133-145) mmol/L Potassium (3.5-5.0) mmol/L Chloride (101-111) mmol/L Carbon Dioxide (22-32) mmol/L Anion Gap (2-11) mmol/L BUN (6-24) mg/dL Creatinine (0.67-1.17) mg/dL Est GFR ( Amer) (>60) Est GFR (Non-Af Amer) (>60) BUN/Creatinine Ratio (8-20) Glucose (70-100) mg/dL Hemoglobin A1c 7.4 H (Less than 6.0) % Lactic Acid 1.5 (0.5-2.0) mmol/L Calcium (8.6-10.3) mg/dL Total Bilirubin (0.2-1.0) mg/dL AST (13-39) U/L ALT (7-52) U/L Alkaline Phosphatase (34-104) U/L Troponin I (<0.04) ng/mL Total Protein (6.4-8.9) g/dL Albumin (3.2-5.2) g/dL Globulin (2-4) g/dL Albumin/Globulin Ratio (1-3) Urine Color Yellow Urine Appearance Clear Urine pH 7.0 (5-9) Ur Specific [place] 1.026 (1.010-1.030) Urine Protein Negative (Negative) Urine Ketones Negative (Negative) Urine Blood Negative (Negative) Urine Nitrate Negative (Negative) Urine Bilirubin Negative (Negative) Urine Urobilinogen Negative (Negative) Ur Leukocyte Esterase Trace H (Negative) Urine WBC (Auto) Trace(0-5/hpf) (Absent) Urine RBC (Auto) Absent (Absent) Urine Bacteria Absent (Absent) Urine Glucose Negative (Negative) Microbiology and Other Data: Microbiology 01/30/17 16:16 Nasal Screen MRSA (PCR)(NETO) - Final Nasal Mrsa Negative Diagnostic Imaging: CT brain, 01/31 - subarachnoid hemorrhage in the left central sulcus without CT- apparent acute abnormality of the underlying haile matter. CTA brain, 01/31 - subarachnoid hemorrhage of left central sulcus, no focal luminal filling defect/aneurysm/vascular malformation seen EKG Data: EKG - SR with RBBB, similar to previous EKG in 08/2016 Assess/Plan/Problems-Billing Assessment: Mr. Levin is an 81 yo male with a PMH significant for HTN, DM, HLD who presented to the ED on 01/30 with concern for right upper extremity numbness; CT brain showed concern for subarachnoid hemorrhage. - Patient Problems (1) Altered mental state Code(s): R41.82 - ALTERED MENTAL STATUS, UNSPECIFIED Comment: Improving, suspect some acute delirium No acute s/s infection, electrolytes have been WNL Try to enforce better sleep/waking cycles Continue Seroquel Neurological checks q4 (2) Subarachnoid hemorrhage Comment: Stable on imaging New numbness yesterday - repeat CT brain with no acute changes ? of vascular abnormality on MRI Repeat MRI pending Appreciate neurology input Continue PT/OT HTN control with goal of SBP<150 (3) De Quervain's tenosynovitis, right Code(s): M65.4 - RADIAL STYLOID TENOSYNOVITIS [DE QUERVAIN] Comment: Improved Patient with positive Marina test to RUE Daughter reports patient does a lot of repetitive movements with housework and lawn care. Continue wrist splint (4) HTN (hypertension) Code(s): I10 - ESSENTIAL (PRIMARY) HYPERTENSION Comment: Normotensive, pt appears to have good BP control at home. Continue lisinopril PRN labetalol with goal of SBP<150 in SAH (5) Diabetes mellitus Code(s): E11.9 - TYPE 2 DIABETES MELLITUS WITHOUT COMPLICATIONS Comment: HgbA1c 7.4 BG with fair control, suspect elevation may be secondary to Seroquel Hold home metformin, continue Lispro SSI (6) HLD (hyperlipidemia) Code(s): E78.5 - HYPERLIPIDEMIA, UNSPECIFIED Comment: Continue atorvastatin. (7) DVT prophylaxis Comment: Anticoagulation contraindicated in acute hemorrhage SCDs (8) Full code status Code(s): Z78.9 - OTHER SPECIFIED HEALTH STATUS Comment: Verbally confirmed with patient and family on 01/30 Status and Disposition: Inpatient admission.
[2017-02-03] MEDS: Insulin LISPRO* 1 UNITS UNIT SUBCUT SCH ×6 (09:13→20:16)
[2017-02-03] MEDS: Lisinopril TAB* 10 MG PO SCH (09:13)
[2017-02-03] MEDS: QUEtiapine TAB* 25 MG PO SCH (13:56)
[2017-02-03] MEDS: Atorvastatin* 20 MG TAB PO SCH (17:37)
[2017-02-03] MEDS ORDERED: Insulin GLARGINE(*) 1 UNITS UNIT SUBCUT SCH (20:00)
[2017-02-03] MEDS: CMCS: Melatonin (NF) 3 MG TAB PO SCH (20:17)
[2017-02-04 05:19] VITALS: BP 136/62
[2017-02-04] MEDS: Haloperidol INJ IV/IM* 5 MG/ML AMP IV SLOW PU PRN (07:20)
--- NOTE | 2017-02-04 07:55 | PN ---
Subjective Date of Service: 02/04/17 Interval History: Patient seen and examined at bedside. Patient reportedly very agitated and combative this AM, woke up and thought he was at home and people were in his house. He received IV haldol, which helped to calm him down. Patient is pleasant and friendly when I see him, stating "it's nice of you to visit." Patient reoriented to the fact that he is in the hospital. He denies any acute pain or complaint. He is waiting for his daughter to come. Telemetry: SR with PVCs 70s Family History: Unchanged from Admission Social History: Unchanged from Admission Past Medical History: Unchanged from Admission Objective Active Medications: Acetaminophen (Tylenol Tab*) 650 mg PO Q4H PRN PRN Reason: FEVER/PAIN Last Admin: 02/02/17 08:21 Dose: 650 mg Atorvastatin Calcium (Lipitor*) 20 mg PO 1700 [facility] Last Admin: 02/03/17 17:37 Dose: 20 mg Dextrose (D50w Syringe 50 Ml*) 12.5 gm IV PUSH .FOR FS < 60 - SS PRN PRN Reason: FS < 60 Haloperidol Lactate (Haldol Inj Iv/Im*) 2 mg IV SLOW PU Q6H PRN PRN Reason: AGITATION Last Admin: 02/04/17 07:20 Dose: 2 mg Insulin Glargine (Lantus(*)) 10 units SUBCUT Q24H [facility] Last Admin: 02/03/17 20:15 Dose: 10 unit Insulin Human Lispro (Humalog*) 0 units SUBCUT ACHS [facility] PRN Reason: Protocol Last Admin: 02/03/17 20:16 Dose: 2 units Insulin Human Lispro (Humalog*) 0 units SUBCUT AC [facility] PRN Reason: Protocol Last Admin: 02/03/17 17:38 Dose: 3 units Labetalol HCl (Trandate Iv*) 10 mg IV PUSH Q6H PRN PRN Reason: BLOOD PRESSURE Lisinopril (Prinivil Tab*) 20 mg PO DAILY [facility] Last Admin: 02/03/17 09:13 Dose: 20 mg Lorazepam (Ativan Inj*) 0.5 mg IV PUSH ONCE PRN PRN Reason: AGITATION/ANXIETY Last Admin: 02/02/17 19:45 Dose: 0.5 mg Melatonin (Melatonin (Nf)) 3 mg PO BEDTIME [facility] Last Admin: 02/03/17 20:17 Dose: 3 mg Quetiapine Fumarate (Seroquel Tab*) 25 mg PO 1400 [facility] Last Admin: 02/03/17 13:56 Dose: 25 mg Vital Signs 02/03/17 02/03/17 02/03/17 08:00 08:18 13:23 Temperature 98.5 F Pulse Rate 70 64 Respiratory 16 16 16 Rate Blood Pressure 129/81 129/57 (mmHg) O2 Sat by Pulse 99 98 Oximetry 02/03/17 02/03/17 02/03/17 15:21 19:59 20:00 Temperature 98.1 F 98.7 F Pulse Rate 86 66 Respiratory 16 18 16 Rate Blood Pressure 126/57 118/58 (mmHg) O2 Sat by Pulse 98 98 Oximetry 02/03/17 02/04/17 23:48 03:58 Temperature 97.5 F 97.8 F Pulse Rate 67 67 Respiratory 18 20 Rate Blood Pressure 153/73 136/62 (mmHg) O2 Sat by Pulse 100 96 Oximetry Oxygen Devices in Use Now: None Appearance: Elderly male, OOB to chair, confused but currently cooperative Eyes: PERRLA Ears/Nose/Mouth/Throat: Mucous Membranes Moist Neck: NL Appearance and Movements; NL JVP Respiratory: Symmetrical Chest Expansion and Respiratory Effort, Clear to Auscultation Cardiovascular: NL Sounds; No Murmurs; No JVD, RRR Abdominal: NL Sounds; No Tenderness; No Distention Extremities: No Edema Neurological: - - Alert, oriented to self only Lines/Tubes/Other Access: Clean, Dry and Intact Peripheral IV Nutrition: Taking PO's Result Diagrams: 02/02/17 05:18 02/03/17 08:12 Additional Lab and Data: Lab Results 01/30/17 01/30/17 01/30/17 Range/Units 12:20 12:20 12:20 WBC 6.2 (3.5-10.8) 10^3/ul RBC 4.46 (4.0-5.4) 10^6/ul Hgb 13.7 L (14.0-18.0) g/dl Hct 42 (42-52) % MCV 94 (80-94) fL MCH 31 (27-31) pg MCHC 33 (31-36) g/dl RDW 14 (10.5-15) % Plt Count 134 L (150-450) 10^3/ul MPV 9 (7.4-10.4) um3 Neut % (Auto) 65.9 (38-83) % Lymph % (Auto) 24.9 L (25-47) % Phelps % (Auto) 6.7 (1-9) % Eos % (Auto) 1.9 (0-6) % Baso % (Auto) 0.6 (0-2) % Absolute Neuts (auto) 4.1 (1.5-7.7) 10^3/ul Absolute Lymphs (auto) 1.5 (1.0-4.8) 10^3/ul Absolute Monos (auto) 0.4 (0-0.8) 10^3/ul Absolute Eos (auto) 0.1 (0-0.6) 10^3/ul Absolute Basos (auto) 0 (0-0.2) 10^3/ul Absolute Nucleated RBC 0 10^3/ul Nucleated RBC % 0.1 INR (Anticoag Therapy) 0.82 L (0.89-1.11) Sodium 138 (133-145) mmol/L Potassium 4.1 (3.5-5.0) mmol/L Chloride 105 (101-111) mmol/L Carbon Dioxide 28 (22-32) mmol/L Anion Gap 5 (2-11) mmol/L BUN 16 (6-24) mg/dL Creatinine 0.82 (0.67-1.17) mg/dL Est GFR ( Amer) 115.7 (>60) Est GFR (Non-Af Amer) 89.9 (>60) BUN/Creatinine Ratio 19.5 (8-20) Glucose 122 H (70-100) mg/dL Hemoglobin A1c (Less than 6.0) % Lactic Acid (0.5-2.0) mmol/L Calcium 9.4 (8.6-10.3) mg/dL Total Bilirubin 0.50 (0.2-1.0) mg/dL AST 16 (13-39) U/L ALT 10 (7-52) U/L Alkaline Phosphatase 56 (34-104) U/L Troponin I 0.00 (<0.04) ng/mL Total Protein 6.8 (6.4-8.9) g/dL Albumin 4.2 (3.2-5.2) g/dL Globulin 2.6 (2-4) g/dL Albumin/Globulin Ratio 1.6 (1-3) Urine Color Urine Appearance Urine pH (5-9) Ur Specific Bourbon (1.010-1.030) Urine Protein (Negative) Urine Ketones (Negative) Urine Blood (Negative) Urine Nitrate (Negative) Urine Bilirubin (Negative) Urine Urobilinogen (Negative) Ur Leukocyte Esterase (Negative) Urine WBC (Auto) (Absent) Urine RBC (Auto) (Absent) Urine Bacteria (Absent) Urine Glucose (Negative) 01/30/17 01/30/17 01/30/17 Range/Units 12:20 12:20 14:48 WBC (3.5-10.8) 10^3/ul RBC (4.0-5.4) 10^6/ul Hgb (14.0-18.0) g/dl Hct (42-52) % MCV (80-94) fL MCH (27-31) pg MCHC (31-36) g/dl RDW (10.5-15) % Plt Count (150-450) 10^3/ul MPV (7.4-10.4) um3 Neut % (Auto) (38-83) % Lymph % (Auto) (25-47) % Phelps % (Auto) (1-9) % Eos % (Auto) (0-6) % Baso % (Auto) (0-2) % Absolute Neuts (auto) (1.5-7.7) 10^3/ul Absolute Lymphs (auto) (1.0-4.8) 10^3/ul Absolute Monos (auto) (0-0.8) 10^3/ul Absolute Eos (auto) (0-0.6) 10^3/ul Absolute Basos (auto) (0-0.2) 10^3/ul Absolute Nucleated RBC 10^3/ul Nucleated RBC % INR (Anticoag Therapy) (0.89-1.11) Sodium (133-145) mmol/L Potassium (3.5-5.0) mmol/L Chloride (101-111) mmol/L Carbon Dioxide (22-32) mmol/L Anion Gap (2-11) mmol/L BUN (6-24) mg/dL Creatinine (0.67-1.17) mg/dL Est GFR ( Amer) (>60) Est GFR (Non-Af Amer) (>60) BUN/Creatinine Ratio (8-20) Glucose (70-100) mg/dL Hemoglobin A1c 7.4 H (Less than 6.0) % Lactic Acid 1.5 (0.5-2.0) mmol/L Calcium (8.6-10.3) mg/dL Total Bilirubin (0.2-1.0) mg/dL AST (13-39) U/L ALT (7-52) U/L Alkaline Phosphatase (34-104) U/L Troponin I (<0.04) ng/mL Total Protein (6.4-8.9) g/dL Albumin (3.2-5.2) g/dL Globulin (2-4) g/dL Albumin/Globulin Ratio (1-3) Urine Color Yellow Urine Appearance Clear Urine pH 7.0 (5-9) Ur Specific Bourbon 1.026 (1.010-1.030) Urine Protein Negative (Negative) Urine Ketones Negative (Negative) Urine Blood Negative (Negative) Urine Nitrate Negative (Negative) Urine Bilirubin Negative (Negative) Urine Urobilinogen Negative (Negative) Ur Leukocyte Esterase Trace H (Negative) Urine WBC (Auto) Trace(0-5/hpf) (Absent) Urine RBC (Auto) Absent (Absent) Urine Bacteria Absent (Absent) Urine Glucose Negative (Negative) Microbiology and Other Data: Microbiology 01/30/17 16:16 Nasal Screen MRSA (PCR)(NETO) - Final Nasal Mrsa Negative Diagnostic Imaging: CT brain, 01/31 - subarachnoid hemorrhage in the left central sulcus without CT- apparent acute abnormality of the underlying haile matter. CTA brain, 01/31 - subarachnoid hemorrhage of left central sulcus, no focal luminal filling defect/aneurysm/vascular malformation seen EKG Data: EKG - SR with RBBB, similar to previous EKG in 08/2016 Assess/Plan/Problems-Billing Assessment: Mr. Levin is an 81 yo male with a PMH significant for HTN, DM, HLD who presented to the ED on 01/30 with concern for right upper extremity numbness; CT brain showed concern for subarachnoid hemorrhage. - Patient Problems (1) Altered mental state Code(s): R41.82 - ALTERED MENTAL STATUS, UNSPECIFIED Comment: Patient woke up confused this morning, thinking he was in his house Suspect hospital delirium No acute s/s infection, electrolytes have been WNL Denies pain, voiding appropriately Continue Seroquel (2) Subarachnoid hemorrhage Comment: Stable on imaging Suspect ischemic stroke with bleed, perhaps secondary to trauma (hitting head on car or branches) Appreciate neurology input Continue PT/OT - will need outpatient services HTN control with goal of SBP<150 Outpatient neuro follow-up Start ASA in 2 weeks (3) De Quervain's tenosynovitis, right Code(s): M65.4 - RADIAL STYLOID TENOSYNOVITIS [DE QUERVAIN] Comment: Improved Patient with positive Marina test to RUE Daughter reports patient does a lot of repetitive movements with housework and lawn care. Continue wrist splint (4) HTN (hypertension) Code(s): I10 - ESSENTIAL (PRIMARY) HYPERTENSION Comment: Normotensive, pt appears to have good BP control at home. Continue lisinopril PRN labetalol with goal of SBP<150 in [facility] (5) Diabetes mellitus Code(s): E11.9 - TYPE 2 DIABETES MELLITUS WITHOUT COMPLICATIONS Comment: HgbA1c 7.4 BG with fair control, suspect elevation may be secondary to Seroquel Hold home metformin, continue Lispro SSI (6) HLD (hyperlipidemia) Code(s): E78.5 - HYPERLIPIDEMIA, UNSPECIFIED Comment: Continue atorvastatin. (7) DVT prophylaxis Comment: Anticoagulation contraindicated in acute hemorrhage SCDs (8) Full code status Code(s): Z78.9 - OTHER SPECIFIED HEALTH STATUS Comment: Verbally confirmed with patient and family on 01/30 Status and Disposition: Inpatient admission.
[2017-02-04] MEDS: Insulin LISPRO* 1 UNITS UNIT SUBCUT SCH ×2 (09:07)
[2017-02-04] MEDS: Lisinopril TAB* 10 MG PO SCH (09:08)
--- NOTE | 2017-02-04 10:38 | EEG ---
ELECTROENCEPHALOGRAPHY REPORT: DATE OF EE02/02/17 LOCATION: The patient is an inpatient on . ORDERING PROVIDER: Svetlana Mnotanez NP. CLINICAL PROBLEM: This is an 81-year-old man who presented to the emergency department with transient right upper extremity numbness, tingling, and weakness. He was found to have a small subarachnoid hemorrhage in the left frontal sulcus. He had a recurrent episode overnight of right arm dysfunction. EEG is requested to evaluate for epileptiform abnormalities. MEDICATIONS: 1. Seroquel. 2. Humalog. 3. Lipitor. 4. Melatonin. 5. Prinivil. 6. Tylenol. 7. Haldol given at 4:27 on 02/01. 8. Trandate. 9. Ativan p.r.n. REPORT: The waking background showed appropriate organization with clearly defined anterior to posterior voltage and frequency gradients. There was a well defined posterior dominant rhythm of 9 Hz which was symmetrical and showed normal reactivity. Anteriorly, there was an expected pattern of lower voltage, irregular, mixed faster frequencies. With drowsiness, there was some higher voltage, generalized, mixed frequency slowing in the 2 to 6 Hz range. Attenuation of the occipital rhythm accompanied drowsiness. The sleep background was very briefly observed and was noted to have well-developed sleep spindles which were bilaterally symmetrical and synchronous. The sleep transients showed appropriate morphology. Throughout the recording, there were no epileptiform discharges or focal features. CLINICAL IMPRESSION: This is a mildly abnormal waking and brief sleep EEG due to the presence of generalized slowing with drowsiness. These findings are suggestive of a mild, nonspecific, diffuse encephalopathy. There are no epileptiform abnormalities. [id number]/[facility] [place] #: [id number] [facility]
--- NOTE | 2017-02-04 14:26 | PN ---
PROGRESS NOTE: DATE OF FOLLOWUP: 02/03/17 HISTORY OF PRESENT ILLNESS: The patient has been doing well with no recurrence of his right upper e xtremity symptoms. Last evening he underwent repeat MRI of the brain with thin cuts through the yonis rubina. I had a discussion with Dr. Koch yesterday regarding his previous imaging and we had talked about what images to get on the repeat study to try and answer the question of whether there was an y vascular malformation which may have contributed to his presentation. MEDICATIONS: Reviewed and include: 1. Lipitor 20 mg daily. 2. Haldol as needed, last given on 02/01/17. 3. Lantus 10 units a day. 4. Labetalol as needed. 5. Lisinopril 20 mg daily. 6. Melatonin at bedtime. 7. Seroquel 25 mg in the afternoon. The patient was not formally examined today. On observation, he was resting in his bed and partiall y paying attention to the conversation between this examiner, his daughter and his significant other . DIAGNOSTIC STUDIES/LABORATORY DATA: His repeat MRI scan showed the previously noted small focus of restricted diffusion in the left desir radiata. 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 There was also decreased amount of subarachnoid blood noted. Ther e was no obvious other vascular malformation such as a dural AV fistula or AVM. His labs reviewed including hemoglobin A1c of 7.4% and cholesterol studies which showed triglyceride s of 97, total cholesterol of 141, LDL of 65, and HDL of 56. His B12 is 211. IMPRESSION: Jon Levin is an 81-year-old man, who presented with transient right upper extremity n umbness and was found to have an area of subarachnoid hemorrhage in left parietal region as well as a very small ischemic stroke in the deep white matter on the left as well. His transient neurologic symptoms may be due to either the ischemic stroke or the subarachnoid blood. At this point, it see ms that he may have had the small subarachnoid related to bleeding from the developmental venous ano mary ann, which possibly was precipitated by hitting his head on the car as he was getting into the car on Father's Day. With respect to his ischemic stroke, he does have vascular risk factors of hyperte nsion, age and diabetes. His diabetes is under decent control, but could be better. He had previou sly taken aspirin but stopped it after a procedure a couple of months ago and never restarted it. I discussed with his daughter and his significant other that despite the small amount of subarachnoid blood, I think he should restart an aspirin in the near future at 81 mg and recommended that he res tart this in approximately 1 week. I communicated with Dr. Wan again in [place] who felt th at there was no need for him to review the images and there was no indication for any neurosurgical intervention with respect to the subarachnoid hemorrhage. We discussed general safety with respect to Mr. Levin including trying to avoid hitting the head in the future, limiting him mowing the lawn s sarah he tends to hit his head on low hanging tree branches and in general trying to take it easy ove r the next few weeks when he gets home. He is undergoing therapy evaluations for discharge planning and otherwise, I would like him to follow up with me in 4 to 8 weeks as an outpatient. [id number]/[facility] #: [id number]
--- NOTE | 2017-02-05 15:32 | DS ---
DISCHARGE SUMMARY: DATE OF ADMISSION: 01/30/17 DATE OF DISCHARGE: 02/04/17 PROVIDER: Hillary Flaherty NP. ATTENDING PHYSICIAN: Dr. Greg Robbins * (dictated by Hillary Flaherty NP). CONSULTING PHYSICIANS: Dr. Marlys Majano, Neurology; and Dr. Surya Maldonado, Neurosurgery. PRIMARY CARE PROVIDER: Dr. Shukri Dunham. PRIMARY DISCHARGE DIAGNOSES: 1. Ischemic stroke. 2. Subarachnoid hemorrhage in the left parietal region. 3. Hospital-induced delirium. 4. De Quervain tenosynovitis. SECONDARY DISCHARGE DIAGNOSES: 1. Hypertension. 2. Type 2 diabetes. 3. Hyperlipidemia. 4. History of bladder tumor, status post TURBT procedure in August 2016. MEDICATIONS AT DISCHARGE: 1. Regular insulin 5 units per sliding scale. 2. Multivitamin 1 tab daily. 3. Metformin 1000 mg b.i.d. 4. Lisinopril 20 mg q.a.m. 5. Simvastatin 40 mg at bedtime. 6. Aspirin 81 mg daily. This is to be started in 1 week. 7. Seroquel 25 mg p.r.n. at bedtime, to be used for anxiety, agitation, insomnia or sundowning. HOSPITAL COURSE OF STAY: For full details please refer to the full medical record and the H and P provided on 01/30/17. In summary, Mr. Levin is an 81-year-old gentleman who was previously independent with his ADLs and lives at home, who presented to the ER with concern for transient right upper extremity numbness. Earlier that morning the patient was out for breakfast with his daughter on Father's Day. As they were driving back home, the patient reported that he had right arm and shoulder numbness. There was also concern for some dropping of objects and his daughter brought the patient in to the ER for further evaluation. A CT of the brain showed concern for subarachnoid hemorrhage at the left central sulcus without CT apparent acute abnormality of the underlying haile matter. No risk factors such as high blood pressure, uncontrolled blood pressure, trauma, headache, neck pain, nausea, vomiting or loss of consciousness could be identified in the patient. He has also denied taking any aspirin or NSAIDs at home. He denies any regular alcohol use. The patient was initially admitted to ICU for close monitoring. His neurological assessment is mostly within normal limits, although the patient did exhibit confusion at times, agitation, and combativeness. There are no reversible causes found and this was felt to be most likely secondary to acute delirium from being in the hospital. The patient was seen in consult by Neurosurgery who did not feel there is any surgical indication at this time. He was also seen by Neurology who followed with the patient during his course of stay here. 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 It was felt that perhaps the small subarachnoid hemorrhage, which has remained stable during his admission, may have been secondary to bleeding from this DVA. 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 Per the neurology consult notes, the MRI images were reviewed with Dr. Wan in [place] who did not feel there was any indication for any neurosurgical intervention with respect to the subarachnoid hemorrhage. The patient did have evaluations by Physical and Occupation Therapy as well as Speech who all recommended that the patient would benefit from further outpatient services. This has been set up by our case management department. The patient and his family were advised that the patient be monitored closely upon discharge, with someone either staying in the home with him or the patient staying at one of his daughter's houses. His daughter Adriana states that they have a plan in place to have her stay at the house and his other lady friend to also stay with the patient so that he has constant monitoring. He does show some mild confusion still, which again we suspect is due to delirium with the hope that this will improve once he is back home. In regards to general safety, the patient was also advised and instructed to avoid hitting his head in the future and to refrain from using his lawnmower, mowing the lawn, lifting heavy objects or any other strenuous activities over the next few weeks until he his able to follow up with Neurology. The patient was also instructed to start on a baby aspirin in approximately 1 week. The patient's hemoglobin A1c here in the hospital was 7.4. He had a triglyceride level of 97, cholesterol level 141, LDL 65, and HDL 56.7. Vitamin B12 of 211. OTHER DIAGNOSTIC TESTING DURING THIS ADMISSION: CT brain from 01/30/17, impression: CT findings are consistent with subarachnoid hemorrhage of the left central sulcus, without CT apparent acute abnormality of the underlying haile matter. Left mastoid air cell effusion of unknown chronicity. Additional age- appropriate chronic findings described in the body of the report. CTA of the head from 01/30/17, impression: Similar to the previous CT examination. Findings are consistent with subarachnoid hemorrhage at the left central sulcus. 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 CT brain from 01/31/17, impression: Left convexity subarachnoid hemorrhage is unchanged from previous exam. Chronic ischemic white matter changes noted. Left- sided mastoid sinusitis is noted, unchanged. MRI of the brain from 01/31/17 without contrast, impression: A limited partial exam is submitted. There was a potential tiny focus of ischemia in the left cerebral hemisphere near the vertex. There was left-sided subarachnoid hemorrhage as documented on earlier CT imaging. 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 No other enhancing lesions are noted. EEG from 01/31/17, clinical impression: This is an abnormal waking EEG due to the presence of a slightly slow posterior rhythm and some focal slowing in the midline, which, in one instance, was semirhythmic for several seconds. These findings are suggestive of a mild nonspecific diffuse encephalopathy with superimposed focal neuronal dysfunction in the midline. There were no epileptiform abnormalities. Transthoracic echocardiogram from 02/01/17. Conclusion: The study is technically difficult and technically limited due to poor acoustic windows with lung tissue interference. [id number] concentric left ventricular hypertrophy is observed. Left ventricular systolic function is at the lower limits of normal. The estimated ejection fraction is 50% to 55%. There is mild aortic stenosis. There is a trace mitral regurgitation. There was borderline mitral stenosis. There was trace tricuspid regurgitation. Unable to estimate the right ventricular systolic pressure. There was mild dilatation of the ascending aorta. No evidence for [id number] shunting by bubble study. Given the suboptimal imaging and the transthoracic approach with a high-degree of clinical suspicion is present, could consider transesophageal approach. No reports of prior studies for comparison. CT of the brain on 02/02/17. Impression: Small area of subarachnoid hemorrhage present at the left parietal convexity, unchanged. Atrophy and findings consistent with mild chronic small-vessel ischemic changes. MRI of the brain from 02/02/17. Impression: 1. Unchanged subacute small ischemic focus at the left frontal lobe, subcortical white matter. Stigmata of left parietal and frontal lobe subarachnoid hemorrhage based on the constellation of findings with extensive susceptibility artifact and mild hyperdensity within the left central focus on previous CT exams. Correlation was more remote. Prior CT exam available from an outside institution lends specificity to this diagnosis. 2. Negative for significant mass effects. 3. 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 Although rare occurring, in less than 5%, DVA lesions may be associated with intracranial hemorrhage. 4. Unchanged finding of extensive left mastoid effusions. EEG from 02/02/17. Clinical Impression: This is a mildly abnormal waking and brief sleep EEG due to the presence of generalized slowing with drowsiness. These findings are suggestive of a mild nonspecific diffuse encephalopathy. There were no epileptiform abnormalities. CONCERNS AT DISCHARGE: Mr. Levin is discharged home under the care of his daughter on 02/04/17. He is to follow up with Dr. Dunham next week and with Dr. Majano in 4 to 6 weeks. His office will call with an appointment time. OUTPATIENT FOLLOWUP NEEDS: The patient should follow up with Neurology. Additionally, the patient had complaints of right wrist pain that has been ongoing since prior to admission. He has been given a wrist splint and advised to continue working with PT and OT, with concern for De Quervain tenosynovitis. DIET: May resume previous diet. ACTIVITY: As tolerated. The patient advised to avoid any strenuous activity. CONDITION: Improved. DISPOSITION: To home with family and further therapeutic services. TIME SPENT: Time spent on this discharge was approximately 50 minutes. Again, this is only a brief summary of the patient's hospital course of stay. For full details please refer to the full medical record and progress notes. If you have any further questions or need further assistance, please feel free to contact me at [phone]. HILLARY FLAHERTY, RFID STRATEGIST [id number]/[facility] #: [id number] ANIA
== END 2017-02-04 11:17 | disposition home or self-care (01) | DRG 85 ==
LOC: ED 09:46 → ICU 14:58 → MEDTELE 02-01 17:24
PROVIDERS: ADMIT Internal Medicine; ATTEND Internal Medicine
PROC: 4A10X4Z Monitoring of Central Nervous Electrical Activity, External Approach (ICD-10-PCS; principal; 2017-01-31)
DX: S06.6X0A Traumatic subarachnoid hemorrhage without loss of consciousness, initial encounter (principal); I63.9 Cerebral infarction, unspecified; Q28.3 Other malformations of cerebral vessels; E11.9 Type 2 diabetes mellitus without complications; I10 Essential (primary) hypertension; D64.9 Anemia, unspecified; I08.0 Rheumatic disorders of both mitral and aortic valves; Z98.42 Cataract extraction status, left eye; Z98.41 Cataract extraction status, right eye; Z87.891 Personal history of nicotine dependence; R29.700 NIHSS score 0; I70.8 Atherosclerosis of other arteries; E78.5 Hyperlipidemia, unspecified; Z85.51 Personal history of malignant neoplasm of bladder; Z96.652 Presence of left artificial knee joint; Z89.022 Acquired absence of left finger(s); M65.4 Radial styloid tenosynovitis [de Quervain]; R41.0 Disorientation, unspecified; Z79.84 Long term (current) use of oral hypoglycemic drugs; Z79.82 Long term (current) use of aspirin; J32.8 Other chronic sinusitis; W22.8XXA Striking against or struck by other objects, initial encounter; Y93.I9 Activity, other involving external motion; Y92.9 Unspecified place or not applicable
CPT/HCPCS: 36415; 70030; 70450; 70496; 70551; 70552; 70553; 80048; 80053; 80061; 81003; 81015; 82607; 83036; 83605; 84484; 85025; 85610; 87086; 87641; 93005; 93306; 95816; 95819; 97530; A9270-GY; A9579; C8929; J1630; J2060; Q9967

== ENCOUNTER 2017-07-21 00:14 | Emergency (ER) | payer MEDICARE ==
[2017-07-21 02:37] LABS: Urine Bacteria Absent (Absent)
[2017-07-21 03:52] LABS: Hematocrit 38 % (42-52); Hemoglobin 12.7 g/dl (14.0-18.0); Mean Corpuscular HGB Conc 34 g/dl (31-36); Mean Corpuscular Hemoglobin 32 pg (27-31); Mean Corpuscular Volume 95 fL (80-94); Mean Platelet Volume 10 um3 (7.4-10.4); Red Blood Count 3.98 10^6/ul (4.0-5.4); Red Cell Distribution Width 13 % (10.5-15); White Blood Count 5.3 10^3/ul (3.5-10.8)
[2017-07-21 04:08] LABS: BUN/Creatinine Ratio 19.2 (8-20); Calcium 9.2 mg/dL (8.6-10.3); EGFR African American 132.3 (>60); EGFR Non-African American 102.9 (>60); Globulin 2.1 g/dL (2-4); Potassium 3.7 mmol/L (3.5-5.0); Total Bilirubin 0.4 mg/dL (0.2-1.0); Total Protein 6.1 g/dL (6.4-8.9)
[2017-07-21] MEDS ORDERED: cefTRIAXone(*) 1 GM in NS 0.9% 50 ML* 50 ML IVPB ONE (09:26)
[2017-07-21] MEDS ORDERED: cefTRIAXone VIAL(*) 1,000 MG VIAL IM ONE (09:40)
[2017-07-21] MEDS ORDERED: Lidocaine 1%* 5 ML VIAL ONE (09:41)
[2017-07-21 11:37] VITALS: BP 120/50
--- NOTE | 2017-07-22 09:19 | ED ---
Osvaldo Jj Angela, scribed for Giuseppe Murphy MD on 07/21/17 at 0919 . Progress - Progress Note Progress Note: This pt was signed out by Dr. King, pending disposition, awaiting urologist consult. Pt is an 81 y/o male presenting to [facility] referred by urologist c/o hematuria since yesterday. Physical Exam: VITAL SIGNS: Reviewed. GENERAL: Patient is a well-developed and nourished male who is lying comfortable in the stretcher. Patient is not in any acute respiratory distress. Pt has a booker catheter with pink-aubree urine. HEAD AND FACE: No signs of trauma. No ecchymosis, hematomas or skull depressions. No sinus tenderness. EYES: PERRLA, EOMI x 2, No injected conjunctiva, no nystagmus. EARS: Hearing grossly intact. Ear canals and tympanic membranes are within normal limits. MOUTH: Oropharynx within normal limits. NECK: Supple, trachea is midline, no adenopathy, no JVD, no carotid bruit, no c- spine tenderness, neck with full ROM. CHEST: Symmetric, no tenderness at palpation LUNGS: Clear to auscultation bilaterally. No wheezing or crackles. CVS: Regular rate and rhythm, S1 and S2 present, no murmurs or gallops appreciated. ABDOMEN: Soft, non-tender. No signs of distention. No rebound no guarding, and no masses palpated. Bowel sounds are normal. EXTREMITIES: FROM in all major joints, no edema, no cyanosis or clubbing. NEURO: Alert and oriented x 3. No acute neurological deficits. Speech is normal and follows commands. SKIN: Dry and warm The pt will be discharged to home, in stable condition, with a diagnosis of hemorrhagic cystitis. Re-Evaluation - Re-Evaluation First Eval Re-Evaluation Time: 09:05 Comment: Pt denies any pain. 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 Course/Dx - Course Course Of Treatment: This pt was signed out by Dr. King. He requested to follow up on Dr. Wahl recommendation on hematuria. H&H is 12.7/38. Urinalysis shows positive RBC and WBC. The pt was irrigated by Dr. King and Dr. Cobos. Dr. Cobos recommends for the pt to get Rocephin 1 gram IM and discharge the pt with a booker catheter. Pts daughter was given instructions to call Dr. Wahl office tomorrow to notify him how the pt is doing. If the pt is getting worse with hematuria, he is instructed to return to the ED immediately or call Dr. Cobos immediately. I discussed the plan with the pt and daughter , they both understand and agree. They were given a prescription for Bactrim, however he is taking Lisinopril which increased the risk for hyperkalemia. Therefore, I changed the prescription to Ciprofloxacin. Pt is hemodynamically stable, alert and oriented x3. Dr. Cobos reports that the reason for hematuria is because the pt may be developing hemorrhagic cystitis. The pt will be discharged to home, in stable condition, with a diagnosis of hemorrhagic cystitis. - Diagnoses Provider Diagnoses: Hemorrhagic cystitis - Provider Notifications Discussed Care Of Patient With: Héctor Cobos Time Discussed With Above Provider: 09:16 Instructed by Provider To: Other - I discussed the pt's case with Dr. Cobos. He requested to give the pt Rocephin 1 gram IM and discharge the pt with bactrim. The documentation as recorded by the Osvaldo yusuf Angela accurately reflects the service I personally performed and the decisions made by me, Giuseppe Murphy MD.
== END 2017-07-21 11:36 | disposition home or self-care (01) ==
LOC: ED 00:14
DX: N30.91 Cystitis, unspecified with hematuria (principal)
CPT/HCPCS: 36415; 80053; 81003; 85025; 96365; 99284; J0696